=== PATIENT | male | born 1995 | race African-American/Black ===

== ENCOUNTER 2019-07-10 02:23 | Inpatient (IN) | payer MEDICARE, MEDICAID ==
[~2019-07-10] VITALS: Ht 185.4 cm; Wt 85.3 kg
[~2019-07-10 02:23] MED LIST: ACETAMINOPHEN325 M1 ORAL; ASCORBIC ACID500 MG ORAL; BACLOFEN10 MG ORAL; BISACODYL5 MG ORAL; CELEXA20 MG ORAL; COLACE100 MG ORAL; DITROPAN10 MG ORAL; FERROUS SULFAT325 MG ORAL; GABAPENTIN400 MG ORAL; LIDOCAINE700 M1 TP; MULTIVITAMINS1 EAC2 ORAL; POTASSIUM CHLO10 ME2 PO; SORBITOL2000 ML PO; TYLENOL EXTRA500 MG ORAL
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
[2019-07-10] MEDS ORDERED: SENNA8.6 M2 PO (02:33)
[2019-07-10] MEDS ORDERED: MILK OF MA2400 MG/10 ORAL (02:33)
[2019-07-10] MEDS ORDERED: SIMETHICONE80 MG ORAL (02:33)
[2019-07-10] MEDS ORDERED: CYMBALTA30 MG ORAL (02:33)
[2019-07-10] MEDS ORDERED: REVATIO20 MG ORAL (02:33)
[2019-07-10] MEDS ORDERED: NORCO 5-325 TA1 EAC1 ORAL (02:33)
[2019-07-10] MEDS ORDERED: BENEFIBER1 EACH ORAL (02:33)
[2019-07-10] MEDS ORDERED: AMITIZA24 MCG ORAL (02:33)
[2019-07-10] MEDS ORDERED: IBUPROFEN400 MG ORAL (02:33)
[2019-07-10] MEDS ORDERED: MELATONIN3 MG ORAL (02:33)
[2019-07-10] MEDS ORDERED: OMEPRAZOLE20 M2 ORAL (02:33)
--- NOTE | 2019-07-10 02:40 | NUR ---
ED Nurse Note: blood drawn and sent to lab
--- NOTE | 2019-07-10 02:43 | NUR ---
ED Nurse Note: urine collected and sent to lab
--- NOTE | 2019-07-10 02:45 | NUR ---
ED Nurse Note: xr at bedside
[2019-07-10 02:48] VITALS: BP 119/84
[2019-07-10 02:53] LABS: APPEARANCE,URINE SLIGHTLY CLOUDY; BILIRUBIN, URINE NEGATIVE (NEGATIVE); GLUCOSE, URINE (UA) NEGATIVE (NEGATIVE); KETONES,URINE 1+ (NEGATIVE); LEUKOCYTE ESTERASE ,URINE 3+ (NEGATIVE); NITRITE,URINE NEGATIVE (NEGATIVE); PH,URINE 7 (4.5-8.0); PROTEIN,URINE 2+ (NEGATIVE); UROBILINOGEN,URINE 1 MG/DL (0.0-1.0)
[2019-07-10 02:53] LABS: BASOPHILS % (AUTO) 1.6 % (0.0-2.0); EOSINOPHILS % (AUTO) 0.5 % (0.0-3.0); HEMATOCRIT 41.2 % (42.0-52.0); HEMOGLOBIN 13.5 G/DL (14.2-18.0); LYMPHOCYTES % (AUTO) 32.3 % (20.0-45.0); MEAN CORPUSCULAR VOLUME 82 FL (80-99); MONOCYTES % (AUTO) 7.2 % (1.0-10.0); NEUTROPHILS % (AUTO) 58.4 % (45.0-75.0); PLATELET COUNT 382 K/UL (150-450); RED BLOOD COUNT 5.01 M/UL (4.70-6.10); WHITE BLOOD COUNT 8.3 K/UL (4.8-10.8)
[2019-07-10 02:55] LABS: COLOR,URINE YELLOW
[2019-07-10 03:03] LABS: ANION GAP 6 mmol/L (5-15); BLOOD UREA NITROGEN 11 mg/dL (7-18); CALCIUM 9.3 MG/DL (8.5-10.1); CARBON DIOXIDE 32 MMOL/L (21-32); CHLORIDE 102 MMOL/L (98-107); CREATININE 0.6 MG/DL (0.55-1.30); POTASSIUM 4.2 MMOL/L (3.5-5.1); SODIUM 140 MMOL/L (136-145)
[2019-07-10 03:16] LABS: ALANINE AMINOTRANSFERASE 22 U/L (12-78); ALBUMIN 3.9 G/DL (3.4-5.0); ALBUMIN/GLOBULIN RATIO 0.9 (1.0-2.7); ALKALINE PHOSPHATASE 148 U/L (46-116); ASPARTATE AMINO TRANSFERASE 27 U/L (15-37); BILIRUBIN,TOTAL 0.3 MG/DL (0.2-1.0); CKMB 1.3 NG/ML (0.0-3.6); CREATINE KINASE 273 U/L (26-308)
[2019-07-10] MEDS ORDERED: cefTRIAXone 1 GM in NS 55 ML IVPB ONE (03:45)
--- NOTE | 2019-07-10 03:50 | NUR ---
ED Nurse Note: PT IS CALM AND SLEEPING. VSS, NAD.
--- NOTE | 2019-07-10 05:40 | Diagnostic Imaging Report ---
EXAM: XR Chest, 1 View CLINICAL HISTORY: SOB TECHNIQUE: Frontal view of the chest. COMPARISON: CXR 01/03/18 report only. FINDINGS: Lungs: Unremarkable. No consolidation. Pleural space: Unremarkable. No pneumothorax. Heart: Unremarkable. No cardiomegaly. Mediastinum: Unremarkable. Bones/joints: Unremarkable. Soft tissues: Curvilinear density and multiple metallic foreign bodies are seen in the midline, question within the soft tissues. IMPRESSION: Curvilinear density and multiple metallic foreign bodies are seen in the midline.
[2019-07-10 06:25] VITALS: BP 125/79
--- NOTE | 2019-07-10 06:30 | NUR ---
ED Nurse Note: PT CALM AND SLEEPING. NAD, VSS.
--- NOTE | 2019-07-10 07:43 | NUR ---
ED Nurse Note: Report given to Jw PUENTE.
--- NOTE | 2019-07-10 08:00 | NUR ---
ED Nurse Note: Pt transferred to [facility] unit and received by Jw PUENTE. All belongings with patient. Pt alert and orientedx4, pressure ulcer pics uploaded, swabs sent.
[2019-07-10 08:15] VITALS: BP 113/64
--- NOTE | 2019-07-10 08:15 | NUR ---
NURSE NOTES: Patient admitted from ER via [facility], patient resides @ [facility]. Patient is alert and oriented x4. Not in respiratory/cardiac distress. Orientation given about the unit, patient refused skin assessment stating " I want to sleep more, do it later." RN explained the importance of complying care. Per fci paper and ER wound photo show decubitus. Will follow up. Patient allowed V/S only @ this time. V/S stable, no fever, noted with supra pubic cath with leg bag. Rn changed the leg bag to regular bag and patient stated that suprapubic cath was changed 2 weeks ago. No blood or sediment in the urine. RN paged Dr. Moody for admission orders. Call light within reach, bed is in lowest position. Will continue plan of care.
[2019-07-10] MEDS ORDERED: D5NS 1,000 ML IV SCH (09:30)
--- NOTE | 2019-07-10 09:30 | NUR ---
NURSE NOTES: Dr. Moody came in and RN received admission orders, Dr. Moody said to resume halfway meds.Dr. Moody reviewed all the halfway meds.
[2019-07-10] MEDS ORDERED: Fleet's Mineral Oil Enema RECTAL PRN (09:45)
[2019-07-10] MEDS ORDERED: Revatio 20mg tab ORAL PRN (09:45)
[2019-07-10] MEDS ORDERED: Simethicone 80mg tab ORAL PRN (09:45)
--- NOTE | 2019-07-10 10:00 | NUR ---
NURSE NOTES: Patient refused skin assessment stating " I want to sleep more. Don't bother me." RN explained the importance of complying with care. Rn will follow up.
--- NOTE | 2019-07-10 10:40 | NUR ---
NURSE NOTES: RN informed Mary Ann Jimenez and Jennifer for new consult.
--- NOTE | 2019-07-10 11:00 | History and Physical Report ---
DATE OF ADMISSION: 07/10/2019 TIME SEEN: At 9 a.m. CONSULTANTS: 1. Victor Manuel Ordoñez M.D. 2. Chaim Rodriguez M.D. 3. Rock Reese M.D. CHIEF COMPLAINT: UTI, sepsis, hip wound, paraplegia. BRIEF HISTORY: This is a 23-year-old male, who lives in [facility] with above-mentioned diagnoses, admitted to medical floor for further treatment. Currently, calm, sleeping in bed, not answering questions. REVIEW OF SYSTEMS: Unavailable. PAST MEDICAL HISTORY: Include paraplegia, recurrent UTI. PAST SURGICAL HISTORY: Unknown. MEDICATIONS: Include ceftriaxone, IV fluids. ALLERGIES: Piperacillin, tazobactam, and vancomycin. SOCIAL HISTORY: No smoking. No alcohol. No intravenous drug abuse. FAMILY HISTORY: Noncontributory. PHYSICAL EXAMINATION: GENERAL: Calm in bed, sleepy, refusing to answer questions. VITAL SIGNS: Temperature is 97 degrees, pulse 67, respirations 18, blood pressure 113/64. CARDIOVASCULAR: No murmur. LUNGS: Distant and clear. ABDOMEN: Bowel sounds positive. Nontender and nondistended. EXTREMITIES: Show no cyanosis, clubbing, or edema. NEUROLOGIC: The patient is lethargic in bed, refusing to follow directions. LABORATORY AND DIAGNOSTIC DATA: Labs at this time show hemoglobin and hematocrit 13/41, otherwise CBC is normal. BMP shows alkaline phosphatase 148. Troponin 0.00, otherwise BMP is normal. Urinalysis show 3+ leukocyte esterase. ASSESSMENT: 1. UTI. 2. Sepsis. 3. Hip wound. 4. Paraplegia. PLAN: Resume home medications and diet. Wound care, antibiotics per Infectious Disease. PT and dietary evaluation. CBC and BMP in the morning. Pain control. We will continue to follow the patient. Roger Moody D.O. DR: EMANUEL JOB#: [id number] CC:
[2019-07-10] MEDS: D5 1/2NS 1,000 ML IV SCH (11:19)
[2019-07-10 12:00] VITALS: BP 117/72
--- NOTE | 2019-07-10 12:00 | NUR ---
NURSE NOTES: RN offered lunch but patient wants to eat later. Patient is easily arousable. Breathing is even and unlabored. Denies pain or discomfort. Will continue to monitor.
--- NOTE | 2019-07-10 13:00 | NUR ---
NURSE NOTES: Patient seen by and RN was able to do skin assessment and took picture of patient's wound. patient noted with sacral and right ischial tuberosity stage IV pressure sore and left ischial tuberosity healed wound. Proper skin care done and re-position done.V/S stable.
--- NOTE | 2019-07-10 14:17 | Consultation ---
History of Present Illness General Date patient seen: Jul 10, 2019 Reason for Hospitalization: Male Urogenital Problems Present Illness HPI Patient is a 23-year-old male presents after increased body aches and muscle twitching. Was noted to have abnormal labs admitted further care management. On admission identified to have a abnormal sacral decubitus ulcer as well as right ischial ulcer. Surgery called to evaluate and assist with care. Patient seen, patient evaluate, chart reviewed. Prior history of suprapubic catheter placement. Had been sent in from nursing facility. Prior history of paraplegia approximately T4 level. Has indwelling supra denies any change in urine odor.Denies any vomiting. Reports having recent antibiotic use approximately 1 week ago. Reports being at this facility approximately 3 weeks to a month ago Allergies: Coded Allergies: Dust (Verified Allergy, Unknown, skin rash and/or hives, 01/04/18) PIPERACILLIN (Verified Allergy, Unknown, skin rash and/or hives, 01/04/18) TAZOBACTAM (Verified Allergy, Unknown, skin rash and/or hives, 01/04/18) VANCOMYCIN (Verified Allergy, Unknown, skin rash and/or hives, 01/04/18) COVID-19 Screening Contact w/high risk pt: No Recent Travel to affected area: No Experienced COVID-19 symptoms?: No Medication History Scheduled Baclofen* (Baclofen*), 20 MG ORAL QID, (Reported) Bisacodyl* (Dulcolax*), 10 MG ORAL DAILY, (Reported) Docusate Sodium* (Colace*), 100 MG ORAL TWICE A DAY, (Reported) Duloxetine Hcl* (Cymbalta*), 30 MG ORAL DAILY, (Reported) Gabapentin* (Gabapentin*), 400 MG ORAL THREE TIMES A DAY, (Reported) Ibuprofen* (Motrin*), 200 MG ORAL FOUR TIMES A DAY, (Reported) Lidocaine (Lidocaine), 4 % TP DAILY, (Reported) Lubiprostone (Amitiza*), 24 MCG ORAL EVERY 12 HOURS, (Reported) Magnesium Hydroxide* (Milk Of Magnesia*), 30 ML ORAL DAILY, (Reported) Multivitamins* (Multivitamins*), 1 TAB ORAL DAILY, (Reported) Omeprazole (Omeprazole), 20 MG ORAL DAILY, (Reported) Oxybutynin Chloride (Oxybutynin Chloride), 5 MG ORAL BID, (Reported) Sildenafil Citrate (Revatio), 20 MG ORAL THREE TIMES A DAY, (Reported) Scheduled PRN Acetaminophen* (Acetaminophen 325MG Tablet*), 325 MG ORAL Q4H PRN for For Pain, (Reported) Hydrocodone Bit/Acetaminophen 5-325* ([place] 5-325 Tablet*), 1 TAB ORAL Q6H PRN for FOR PAIN, (Reported) Melatonin (Melatonin), 3 MG ORAL BEDTIME PRN for Insomnia, (Reported) Simethicone* (Simethicone*), 80 MG ORAL Q8H PRN for GAS PAIN, (Reported) Miscellaneous Medications Guar Gum (Benefiber*), 1 PACKET ORAL, (Reported) Potassium Chloride (Potassium Chloride), 10 MEQ PO, (Reported) Sennosides (Senna), 8.6 MG PO, (Reported) Discontinued Medications Acetaminophen* (Tylenol Extra Strength*), 500 MG ORAL Q6H PRN for Mild Pain/ Temp > 100.5, (Reported) Discontinued Reason: Pt stopped taking med Ascorbic Acid* (Ascorbic Acid*), 500 MG ORAL DAILY, (Reported) Discontinued Reason: Pt stopped taking med Citalopram Hydrobromide* (Celexa*), 10 MG ORAL DAILY, (Reported) Discontinued Reason: Pt stopped taking med Ferrous Sulfate* (Ferrous Sulfate*), 325 MG ORAL TWICE A DAY, (Reported) Discontinued Reason: Pt stopped taking med Sorbitol Solution (Sorbitol), 30 ML PO Q6HR, (Reported) Discontinued Reason: Pt stopped taking med Patient History History Provided By: Patient, Medical Record, PMD Healthcare decision maker Resuscitation status Full Code Advanced Directive on File No Past Medical/Surgical History Past Medical/Surgical History: (1) Sacral decubitus ulcer, stage IV (2) UTI (urinary tract infection) (3) Abnormal urogenital findings Review of Systems Review of Symptoms General ROS: no weight loss or fever Psychological ROS: no depression or mood changes, no memory loss Ophthalmic ROS: no visual changes or eye irritation ENT ROS: no nasal congestion, hearing loss, dizziness Allergy and Immunology ROS: no allergic symptoms or urticaria Hematological and Lymphatic ROS: no swollen glands, unusual bleeding or bruising Endocrine ROS: no polyuria, polydipsia, weight changes, temperature intolerance Respiratory ROS: no cough, shortness of breath, or wheezing Cardiovascular ROS: no chest pain or dyspnea on exertion Gastrointestinal ROS: denies abdominal pain, bright red blood in stool. Musculoskeletal ROS: no myalgias or arthralgias Neurological ROS: no TIA or stroke symptoms Dermatological ROS: no new or changing skin lesions, rashes or pruritis Physical Exam Physical Exam General appearance: alert, cooperative, no distress, appears stated age Head: Normocephalic, without obvious abnormality, atraumatic Eyes: conjunctivae/corneas clear. PERRL, EOM's intact. Fundi benign Throat: Lips, mucosa, and tongue normal. Teeth and gums normal Neck: supple, symmetrical, trachea midline, no adenopathy, thyroid: not enlarged, symmetric, no tenderness/mass/nodules, no carotid bruit and no JVD Lungs: clear to auscultation bilaterally Heart: regular rate and rhythm, S1, S2 normal, no murmur, click, rub or gallop Abdomen: soft, non-tender. Bowel sounds normal. No masses, no organomegaly Extremities: extremities normal, atraumatic, no cyanosis or edema Pulses: 2+ and symmetric Skin: Skin see below Neurologic: Grossly normal Last 24 Hour Vital Signs Date Time Temp Pulse Resp B/P (MAP) Pulse Ox O2 Delivery O2 Flow Rate FiO2 07/10/19 12:00 97.6 74 18 117/72 (87) 99 07/10/19 09:00 Room Air 07/10/19 08:29 Room Air 07/10/19 08:15 97.2 67 18 113/64 (80) 99 07/10/19 08:00 98.4 79 18 100/65 99 Room Air 07/10/19 06:25 98.4 69 18 125/79 98 Room Air 07/10/19 02:48 98.1 78 18 119/84 98 Room Air 07/10/19 02:25 97.9 71 18 107/71 (83) 100 Room Air Intake and Output 07/09/19 07/10/19 19:00 07:00 Intake Total 0 ml Output Total 50 ml Balance -50 ml Intake Oral 0 ml Output Urine Total 50 ml Laboratory Tests Test 07/10/19 02:38 07/10/19 02:40 White Blood Count 8.3 K/UL (4.8-10.8) Red Blood Count 5.01 M/UL (4.70-6.10) Hemoglobin 13.5 G/DL (14.2-18.0) L Hematocrit 41.2 % (42.0-52.0) L Mean Corpuscular Volume 82 FL (80-99) Mean Corpuscular Hemoglobin 26.9 PG (27.0-31.0) L Mean Corpuscular Hemoglobin Concent 32.7 G/DL (32.0-36.0) Red Cell Distribution Width 13.0 % (11.6-14.8) Platelet Count 382 K/UL (150-450) Mean Platelet Volume 6.3 FL (6.5-10.1) L Neutrophils (%) (Auto) 58.4 % (45.0-75.0) Lymphocytes (%) (Auto) 32.3 % (20.0-45.0) Monocytes (%) (Auto) 7.2 % (1.0-10.0) Eosinophils (%) (Auto) 0.5 % (0.0-3.0) Basophils (%) (Auto) 1.6 % (0.0-2.0) Sodium Level 140 MMOL/L (136-145) Potassium Level 4.2 MMOL/L (3.5-5.1) Chloride Level 102 MMOL/L (98-107) Carbon Dioxide Level 32 MMOL/L (21-32) Anion Gap 6 mmol/L (5-15) Blood Urea Nitrogen 11 mg/dL (7-18) Creatinine 0.6 MG/DL (0.55-1.30) Estimat Glomerular Filtration Rate > 60 mL/min (>60) Glucose Level 94 MG/DL (74-106) Lactic Acid Level 1.60 mmol/L (0.4-2.0) Calcium Level 9.3 MG/DL (8.5-10.1) Total Bilirubin 0.3 MG/DL (0.2-1.0) Aspartate Amino Transf (AST/SGOT) 27 U/L (15-37) Alanine Aminotransferase (ALT/SGPT) 22 U/L (12-78) Alkaline Phosphatase 148 U/L (46-116) H Total Creatine Kinase 273 U/L (26-308) Creatine Kinase MB 1.3 NG/ML (0.0-3.6) Creatine Kinase MB Relative Index 0.4 Troponin I 0.000 ng/mL (0.000-0.056) Total Protein 8.4 G/DL (6.4-8.2) H Albumin 3.9 G/DL (3.4-5.0) Globulin 4.5 g/dL Albumin/Globulin Ratio 0.9 (1.0-2.7) L Urine Color Yellow Urine Appearance Slightly cloudy Urine pH 7 (4.5-8.0) Urine Specific [place] 1.010 (1.005-1.035) Urine Protein 2+ (NEGATIVE) H Urine Glucose (UA) Negative (NEGATIVE) Urine Ketones 1+ (NEGATIVE) H Urine Blood 3+ (NEGATIVE) H Urine Nitrite Negative (NEGATIVE) Urine Bilirubin Negative (NEGATIVE) Urine Urobilinogen 1 MG/DL (0.0-1.0) H Urine Leukocyte Esterase 3+ (NEGATIVE) H Urine RBC 15-20 /HPF (0 - 0) H Urine WBC 20-30 /HPF (0 - 0) H Urine Squamous Epithelial Cells Occasional /LPF Urine Amorphous Sediment Few /LPF (NONE) H Urine Bacteria Few /HPF (NONE) Urine Mucus Moderate /LPF (NONE/OCC) H Microbiology Date/Time Source Procedure Growth Status 07/10/19 02:30 Nasal Nares - Final Complete 07/10/19 02:30 Nasal Nares - Final Complete Height (Feet): 6 Height (Inches): 1.00 Weight (Pounds): 175 Medications Current Medications Medications (Trade) Dose Ordered Sig/Kai Route PRN Reason Start Time Stop Time Status Last Admin Dose Admin Acetaminophen (Tylenol) 325 mg Q4H PRN ORAL For Pain 07/10/19 09:45 08/09/19 09:44 Acetaminophen/ Hydrocodone Bitart ([place] 5/325) 1 tab Q6H PRN ORAL Severe Pain (Pain Scale 7-10) 07/10/19 09:45 07/17/19 09:44 Baclofen (Lioresal) 20 mg THREE TIMES A DAY ORAL 07/10/19 13:00 08/09/19 12:59 Bisacodyl (Dulcolax) 10 mg DAILYPRN PRN RECTAL Constipation 07/10/19 09:45 10/08/19 09:44 Dextrose/Sodium Chloride 1,000 ml @ 60 mls/hr [id number] IV 07/10/19 09:45 08/09/19 09:44 07/10/19 11:19 Docusate Sodium (Colace) 250 mg DAILY ORAL 07/11/19 09:00 08/10/19 08:59 Duloxetine HCl (Cymbalta) 30 mg BID ORAL 07/10/19 18:00 10/08/19 17:59 Gabapentin (Neurontin) 400 mg THREE TIMES A DAY ORAL 07/10/19 13:00 08/09/19 12:59 Heparin Sodium (Porcine) (Heparin 5000 units/ml) 5,000 units EVERY 12 HOURS SUBQ 07/10/19 21:00 08/24/19 20:59 Ibuprofen (Motrin) 600 mg Q6H PRN ORAL Moderate Pain (Pain Scale 4-6) 07/10/19 09:45 08/09/19 09:44 Lidocaine (Lidoderm 5% PATCH) 1 patch DAILY TDERMAL 07/11/19 09:00 10/09/19 08:59 Lubiprostone (Amitiza) 24 mcg EVERY 12 HOURS ORAL 07/10/19 21:00 10/08/19 20:59 Magnesium Hydroxide (Mom) 30 ml QHS ORAL 07/10/19 21:00 08/09/19 20:59 Mineral Oil (Fleet's Mineral Oil Enema) 133 ml DAILYPRN PRN RECTAL Constipation 07/10/19 09:45 08/09/19 09:44 Multivitamins Therapeutic (Therapeutic Multivitamin) 1 ea DAILY ORAL 07/11/19 09:00 08/10/19 08:59 Polyethylene Glycol (Miralax) 17 gm DAILY ORAL 07/11/19 09:00 08/10/19 08:59 Potassium Chloride (K-Dur) 10 meq DAILY ORAL 07/11/19 09:00 10/09/19 08:59 Sennosides (Senokot) 17.2 mg QHS ORAL 07/10/19 21:00 08/09/19 20:59 Simethicone (Mylicon) 80 mg TID PRN ORAL FLATULENCE/BLOATING 07/10/19 09:45 10/08/19 09:44 Assessment/Plan Problem List: (1) Abnormal urogenital findings Assessment & Plan: Suprapubic catheter patient states was placed at [place]. Functional without complication Continue to drainage bag ICD Codes: R89.9 - Unspecified abnormal finding in specimens from other organs , systems and tissues SNOMED: 160462986, [id number] (2) UTI (urinary tract infection) Assessment & Plan: Antibiotics per infectious disease Trend labs Thank you ICD Codes: N39.0 - Urinary tract infection, site not specified SNOMED: 87252465 (3) Sacral decubitus ulcer, stage IV Assessment & Plan: 23-year-old male presents to [facility] and is admitted for further care and management identified to have decubitus ulcer on admission. States she had with a stage IV sacral decubitus ulcer that does show some signs of resolving and likely present for some time now. The patient' s sacrum and buttock area is near flat and identified to have a divot in the sacral region with scar tissue identified and a 3 cm x 3 cm open area 1 cm deep down to palpable sacrum. It is an abnormal wound which can be potentially consistent with potential debridement prior and closure and considerations for either bone debridement. Wound bed in total approximately 8 cm x 8 cm with scar tissue and healing open area as above. No active drainage. No signs of active acute infection. Patient also identified on admission to have a right ischial decubitus ulcer with palpable bone as well. There is overlying tissue granulation tissue identified and scar tissue showing signs of resolution and likely prior was larger and has received care since. No acute infection no drainage both wounds are clean without signs of active infection. No foul odor. Treatment plan Wash sacral and right ischial wounds daily with normal saline. Apply Thera honey impregnated gauze followed by foam dressing. Skin protectant Turn patient every 2 hours Offload heels with pillow Air mattress Nutritional optimization We will follow with recommendations thank you for let me participate in patient' s care ICD Codes: L89.154 - Pressure ulcer of sacral region, stage 4 SNOMED: 601567756, [id number] Chrisf[place]Rock Jul 10, 2019 14:17
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
[2019-07-10] MEDS ORDERED: D5 1/2NS 1000ml IV ONE (17:50)
[2019-07-10] MEDS ORDERED: Tubing IV Secondary IV ONE (17:50)
[2019-07-10] MEDS: DULoxetine 30mg cap ORAL SCH (18:00)
--- NOTE | 2019-07-10 18:35 | NUR ---
NURSE NOTES: RN offered neurontin,duloxetin and baclofen but patient did not want to take meds now stating "I want to take them @7:30,I took meds earlier around 3pm , it is too early to take meds." RN explained about meds and re-educated. Will endorse to the next shift.
--- NOTE | 2019-07-10 19:15 | NUR ---
HAND-OFF: Report given to Kathie and endorsed plan of care and also endorsed to administer meds per patient request.
[2019-07-10 19:46] VITALS: BP 135/75
--- NOTE | 2019-07-10 20:02 | NUR ---
NURSE NOTES: Received patient awake, alert, verbal, paraplegic, no complaints.
[2019-07-10] MEDS: Heparin 5000 units/ml inj SUBQ SCH (21:00)
[2019-07-10] MEDS: Amitiza 24mcg cap ORAL SCH (21:31)
[2019-07-10] MEDS: Sennosides 8.6mg tab ORAL SCH (21:31)
[2019-07-10] MEDS: Milk of Magnesia 30ml Ud ORAL SCH (21:31)
[2019-07-10 23:38] VITALS: BP 130/80
[2019-07-11] MEDS: D5 1/2NS 1,000 ML IV SCH ×2 (02:25→14:31)
[2019-07-11 04:06] VITALS: BP 129/75
--- NOTE | 2019-07-11 07:17 | NUR ---
HAND-OFF: Report given to Jw Mehta RN.
--- NOTE | 2019-07-11 07:18 | NUR ---
NURSE NOTES: Received patient in bed,asleep @ this time. Breathing is even and unlabored. Bed is in lowest position and call light and personnel items within reach. Will continue plan of care.
--- NOTE | 2019-07-11 08:00 | NUR ---
NURSE NOTES: patient refused 8:00am v/S. Explained the risks and benefits.
--- NOTE | 2019-07-11 08:11 | NUR ---
NURSE NOTES: Patient is not taking any antibiotics. RN followed up with Dr. Stevens for antibiotics. Dr. Stevens says she wants to wait for the urine culture since patient has no fever and his WBC is normal.
--- NOTE | 2019-07-11 08:12 | General Progress Note ---
Assessment/Plan Problem List: (1) Sepsis ICD Codes: A41.9 - Sepsis, unspecified organism SNOMED: 85840859 (2) Paraplegia ICD Codes: G82.20 - Paraplegia, unspecified SNOMED: 02681048 (3) UTI (urinary tract infection) ICD Codes: N39.0 - Urinary tract infection, site not specified SNOMED: 93571207 (4) Sacral decubitus ulcer, stage IV ICD Codes: L89.154 - Pressure ulcer of sacral region, stage 4 SNOMED: 898070779, 466848683 Status: unchanged Assessment/Plan: pt diet wound care abx beltran control cbc bmp am Subjective Constitutional: Reports: weakness Allergies: Coded Allergies: Dust (Verified Allergy, Unknown, skin rash and/or hives, 01/04/18) PIPERACILLIN (Verified Allergy, Unknown, skin rash and/or hives, 01/04/18) TAZOBACTAM (Verified Allergy, Unknown, skin rash and/or hives, 01/04/18) VANCOMYCIN (Verified Allergy, Unknown, skin rash and/or hives, 01/04/18) All Systems: reviewed and negative except above Subjective sleepy calm Objective Last 24 Hour Vital Signs Date Time Temp Pulse Resp B/P (MAP) Pulse Ox O2 Delivery O2 Flow Rate FiO2 07/11/19 04:06 98.3 90 18 129/75 (93) 99 07/10/19 23:38 97.9 73 18 130/80 (97) 99 07/10/19 20:15 Room Air 07/10/19 19:46 97.9 76 18 135/75 (95) 98 07/10/19 12:00 97.6 74 18 117/72 (87) 99 07/10/19 09:00 Room Air 07/10/19 08:29 Room Air 07/10/19 08:15 97.2 67 18 113/64 (80) 99 Intake and Output 07/10/19 07/11/19 19:00 07:00 Intake Total 300 ml 180 ml Output Total 450 ml 400 ml Balance -150 ml -220 ml IV Total 300 ml 180 ml Output Urine Total 450 ml 400 ml # Voids 2 # Bowel Movements 1 Height (Feet): 6 Height (Inches): 1.00 Weight (Pounds): 175 General Appearance: lethargic EENT: normal ENT inspection Neck: normal alignment Cardiovascular: normal peripheral pulses, normal rate, regular rhythm Respiratory/Chest: chest wall non-tender, lungs clear, normal breath sounds Abdomen: normal bowel sounds, non tender, soft Extremities: normal inspection Edema: no edema noted Arm (L), no edema noted Arm (R), no edema noted Leg (L), no edema noted Leg (R), no edema noted Pedal (L), no edema noted Pedal (R), no edema noted Generalized Neurologic: motor weakness Skin: normal pigmentation, warm/dry Roger Moody DO Jul 11, 2019 08:11
[2019-07-11] MEDS: Heparin 5000 units/ml inj SUBQ SCH ×2 (09:00→20:49)
[2019-07-11] MEDS: Miralax 17gm pkt ORAL SCH (09:00)
--- NOTE | 2019-07-11 09:00 | NUR ---
NURSE NOTES: RN offered 9:00 am medications but he wants to take them later. He will call the nurse when he wants to. Addendum: 07/11/19 at 1549 by NO FRANK RN Rn also offered morning care but patient said "come back later."
[2019-07-11 10:12] LABS: ANION GAP 9 mmol/L (5-15); BLOOD UREA NITROGEN 9 mg/dL (7-18); CALCIUM 9.1 MG/DL (8.5-10.1); CARBON DIOXIDE 29 MMOL/L (21-32); CHLORIDE 106 MMOL/L (98-107); CREATININE 0.7 MG/DL (0.55-1.30); POTASSIUM 3.6 MMOL/L (3.5-5.1); SODIUM 144 MMOL/L (136-145)
[2019-07-11 10:34] LABS: BASOPHILS % (AUTO) 1.2 % (0.0-2.0); EOSINOPHILS % (AUTO) 1.6 % (0.0-3.0); HEMATOCRIT 36.6 % (42.0-52.0); HEMOGLOBIN 12.4 G/DL (14.2-18.0); LYMPHOCYTES % (AUTO) 50.6 % (20.0-45.0); MEAN CORPUSCULAR VOLUME 82 FL (80-99); NEUTROPHILS % (AUTO) 39.6 % (45.0-75.0); PLATELET COUNT 331 K/UL (150-450); RED BLOOD COUNT 4.48 M/UL (4.70-6.10); RED CELL DISTRIBUTION WIDTH 12.8 % (11.6-14.8); WHITE BLOOD COUNT 5.7 K/UL (4.8-10.8)
[2019-07-11] MEDS: DULoxetine 30mg cap ORAL SCH ×2 (10:39→17:48)
[2019-07-11] MEDS: Multivitamin w/Minerals tab ORAL SCH (10:39)
[2019-07-11] MEDS: Docusate 250mg cap ORAL SCH (10:39)
[2019-07-11] MEDS: Amitiza 24mcg cap ORAL SCH ×2 (10:39→20:48)
[2019-07-11] MEDS: HYDROcodone/Acetamin 5/325 tab ORAL PRN ×2 (10:40→17:45)
--- NOTE | 2019-07-11 10:45 | NUR ---
NURSE NOTES: Patient refused IVF and some of his meds including miralax, heparin, lidocaine patch and potassium. Rn re-educated on medications ,patient fully understood about meds but patient refused x3. Rn explained the risks and benefits. Addendum: 07/11/19 at 1246 by NO FRANK RN Dr. Moody is aware with no new order.
--- NOTE | 2019-07-11 11:00 | NUR ---
PT Note Attempted to see patient for PT eval but patient refused. C/o feeling sleepy.
[2019-07-11 12:00] VITALS: BP 134/80
--- NOTE | 2019-07-11 12:48 | NUR ---
NURSE NOTES: Patient took norco 5/325mg 1 tab 2 hours ago for generalized body pain but he called nurse and said " [place] doesn't do anything. I need stronger pain medication and antibiotics." RN explained what Dr. Stevens said earlier that she wants to wait for urine cx before starting antibiotics. And followed up with Dr. Moody for pain med with new order for physician consult with Dr. Hernandez and RN contacted Florian LOBO, he said he would check the patient tomorrow and no stronger pain med @ this time. RN also followed up with Dr. Stevens for antibiotics and received order from Dr. Stevens to stat ceftrizxone 1g IVPB Q24hr.Dr. Stevens is aware that patient is allergic to piperacillin and tazobactam and vancomycin. She said ok to give ceftriaxone since he got 1 dose in ER. Patient had no reaction.
--- NOTE | 2019-07-11 14:00 | NUR ---
NURSE NOTES: RN offered gabapentin and baclofen but patient refused to take them, re-educated on medication.
[2019-07-11] MEDS: cefTRIAXone 1 GM in D5W 55 ML IVPB SCH (14:28)
--- NOTE | 2019-07-11 14:40 | NUR ---
NURSE NOTES: proper wound care and skin care done, whole linen has changed. Rn spoke to wound care nurse on the phone and air mattress was ordered by wound care nurse. Awaiting for delivery. Patient completed ceftriaxone without adverse reaction. RN informed patient possible adverse reaction prior to hanging the IV antibiotic. IVF is running @ this time.
[2019-07-11 16:00] VITALS: BP 144/75
--- NOTE | 2019-07-11 17:14 | Surgery Progress Note ---
Surgery Progress Note Subjective Additional Comments no acute events resting does not want to be bothered air mattress ordered Objective Last 24 Hour Vital Signs Date Time Temp Pulse Resp B/P (MAP) Pulse Ox O2 Delivery O2 Flow Rate FiO2 07/11/19 16:00 97.7 63 19 144/75 (98) 98 07/11/19 12:00 98.0 67 19 134/80 (98) 99 07/11/19 09:00 Room Air 07/11/19 04:06 98.3 90 18 129/75 (93) 99 07/10/19 23:38 97.9 73 18 130/80 (97) 99 07/10/19 20:15 Room Air 07/10/19 19:46 97.9 76 18 135/75 (95) 98 I&O Intake and Output 07/10/19 07/11/19 19:00 07:00 Intake Total 300 ml 180 ml Output Total 450 ml 400 ml Balance -150 ml -220 ml IV Total 300 ml 180 ml Output Urine Total 450 ml 400 ml # Voids 2 # Bowel Movements 1 Dressing: dry Wound: clean Cardiovascular: RSR Respiratory: clear Abdomen: soft, non-tender, present bowel sounds Extremities: no edema, no tenderness, no cyanosis Laboratory Tests Test 07/11/19 09:45 White Blood Count 5.7 K/UL (4.8-10.8) Red Blood Count 4.48 M/UL (4.70-6.10) L Hemoglobin 12.4 G/DL (14.2-18.0) L Hematocrit 36.6 % (42.0-52.0) L Mean Corpuscular Volume 82 FL (80-99) Mean Corpuscular Hemoglobin 27.8 PG (27.0-31.0) Mean Corpuscular Hemoglobin Concent 33.9 G/DL (32.0-36.0) Red Cell Distribution Width 12.8 % (11.6-14.8) Platelet Count 331 K/UL (150-450) Mean Platelet Volume 6.3 FL (6.5-10.1) L Neutrophils (%) (Auto) 39.6 % (45.0-75.0) L Lymphocytes (%) (Auto) 50.6 % (20.0-45.0) H Monocytes (%) (Auto) 7.0 % (1.0-10.0) Eosinophils (%) (Auto) 1.6 % (0.0-3.0) Basophils (%) (Auto) 1.2 % (0.0-2.0) Sodium Level 144 MMOL/L (136-145) Potassium Level 3.6 MMOL/L (3.5-5.1) Chloride Level 106 MMOL/L (98-107) Carbon Dioxide Level 29 MMOL/L (21-32) Anion Gap 9 mmol/L (5-15) Blood Urea Nitrogen 9 mg/dL (7-18) Creatinine 0.7 MG/DL (0.55-1.30) Estimat Glomerular Filtration Rate > 60 mL/min (>60) Glucose Level 82 MG/DL (74-106) Calcium Level 9.1 MG/DL (8.5-10.1) Plan Problems: (1) Abnormal urogenital findings Assessment & Plan: Suprapubic catheter patient states was placed at [place]. Functional without complication Continue to drainage bag (2) UTI (urinary tract infection) Assessment & Plan: Antibiotics per infectious disease Trend labs Thank you (3) Sacral decubitus ulcer, stage IV Assessment & Plan: 23-year-old male presents to [facility] and is admitted for further care and management identified to have decubitus ulcer on admission. States she had with a stage IV sacral decubitus ulcer that does show some signs of resolving and likely present for some time now. The patient' s sacrum and buttock area is near flat and identified to have a divot in the sacral region with scar tissue identified and a 3 cm x 3 cm open area 1 cm deep down to palpable sacrum. It is an abnormal wound which can be potentially consistent with potential debridement prior and closure and considerations for either bone debridement. Wound bed in total approximately 8 cm x 8 cm with scar tissue and healing open area as above. No active drainage. No signs of active acute infection. Patient also identified on admission to have a right ischial decubitus ulcer with palpable bone as well. There is overlying tissue granulation tissue identified and scar tissue showing signs of resolution and likely prior was larger and has received care since. No acute infection no drainage both wounds are clean without signs of active infection. No foul odor. Treatment plan Wash sacral and right ischial wounds daily with normal saline. Apply Thera honey impregnated gauze followed by foam dressing. Skin protectant Turn patient every 2 hours Offload heels with pillow Air mattress Nutritional optimization We will follow with recommendations thank you for let me participate in patient' s care Rock Reese Jul 11, 2019 17:14
--- NOTE | 2019-07-11 17:50 | NUR ---
NURSE NOTES: RN offered gabapentin,baclofen and duloxetine but patient refused x3 but wanted to take norco. RN explained the risks and benefits.
--- NOTE | 2019-07-11 19:09 | NUR ---
HAND-OFF: Report given to Beti and endorsed plan of care.
[2019-07-11 20:09] VITALS: BP 131/81
--- NOTE | 2019-07-11 20:12 | NUR ---
NURSE NOTES: Received patient awake, alert, verbal, paraplegic, resting in bed, comfortable.
[2019-07-11] MEDS: Sennosides 8.6mg tab ORAL SCH (20:49)
[2019-07-11] MEDS: Milk of Magnesia 30ml Ud ORAL SCH (20:49)
[2019-07-11 23:41] VITALS: BP 128/74
--- NOTE | 2019-07-12 03:15 | NUR ---
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
--- NOTE | 2019-07-12 03:24 | NUR ---
NURSE NOTES: Left messages to Tiago Mojica, and Hilda regarding patient positive for VRE Rectum. Awaiting any further orders.
[2019-07-12 04:36] VITALS: BP 130/84
[2019-07-12 06:39] LABS: HEMATOCRIT 37.5 % (42.0-52.0); HEMOGLOBIN 12.3 G/DL (14.2-18.0); MEAN CORPUSCULAR VOLUME 83 FL (80-99); PLATELET COUNT 325 K/UL (150-450); RED BLOOD COUNT 4.53 M/UL (4.70-6.10); RED CELL DISTRIBUTION WIDTH 12.7 % (11.6-14.8); WHITE BLOOD COUNT 6.6 K/UL (4.8-10.8)
[2019-07-12 06:44] LABS: ANION GAP 7 mmol/L (5-15); BLOOD UREA NITROGEN 11 mg/dL (7-18); CALCIUM 9.2 MG/DL (8.5-10.1); CARBON DIOXIDE 31 MMOL/L (21-32); CHLORIDE 103 MMOL/L (98-107); CREATININE 0.6 MG/DL (0.55-1.30); POTASSIUM 3.5 MMOL/L (3.5-5.1); SODIUM 141 MMOL/L (136-145)
--- NOTE | 2019-07-12 07:20 | NUR ---
NURSE NOTES:handoff received from KWAME Vázquez. Patient received sleeping in bed, no acute signs of distress noted. IV site is clean dry and intact, fluids not running, patient refused. 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 Patient has suprapubic cath. Bed in the low and locked position with call light within reach, will continue to monitor patient.
--- NOTE | 2019-07-12 07:23 | NUR ---
HAND-OFF: Report given to Sung Hendricks RN.
[2019-07-12 08:00] VITALS: BP 133/80
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
--- NOTE | 2019-07-12 09:11 | General Progress Note ---
Assessment/Plan Problem List: (1) Sepsis ICD Codes: A41.9 - Sepsis, unspecified organism SNOMED: 88732627 (2) Paraplegia ICD Codes: G82.20 - Paraplegia, unspecified SNOMED: 70133247 (3) UTI (urinary tract infection) ICD Codes: N39.0 - Urinary tract infection, site not specified SNOMED: 06951283 (4) Sacral decubitus ulcer, stage IV ICD Codes: L89.154 - Pressure ulcer of sacral region, stage 4 SNOMED: 563870801, [id number] Status: stable, progressing Assessment/Plan: pt diet wound care abx pain control cbc bmp am dc plan Subjective Constitutional: Reports: weakness Allergies: Coded Allergies: Dust (Verified Allergy, Unknown, skin rash and/or hives, 01/04/18) PIPERACILLIN (Verified Allergy, Unknown, skin rash and/or hives, 01/04/18) TAZOBACTAM (Verified Allergy, Unknown, skin rash and/or hives, 01/04/18) VANCOMYCIN (Verified Allergy, Unknown, skin rash and/or hives, 01/04/18) All Systems: reviewed and negative except above Subjective sleepy calm Objective Last 24 Hour Vital Signs Date Time Temp Pulse Resp B/P (MAP) Pulse Ox O2 Delivery O2 Flow Rate FiO2 07/12/19 08:00 97.5 78 18 133/80 (97) 99 07/12/19 04:36 97.8 76 18 130/84 (99) 98 07/11/19 23:41 97.6 70 18 128/74 (92) 96 07/11/19 20:18 Room Air 07/11/19 20:09 97.8 71 18 131/81 (98) 97 07/11/19 16:00 97.7 63 19 144/75 (98) 98 07/11/19 12:00 98.0 67 19 134/80 (98) 99 Intake and Output 07/11/19 07/12/19 19:00 07:00 Intake Total 1040 ml 180 ml Output Total 700 ml 650 ml Balance 340 ml -470 ml IV Total 240 ml 180 ml Other 800 ml Output Urine Total 700 ml 650 ml # Voids 2 Laboratory Tests 07/11/19 09:45: White Blood Count 5.7, Red Blood Count 4.48L, Hemoglobin 12.4L, Hematocrit 36.6L , Mean Corpuscular Volume 82, Mean Corpuscular Hemoglobin 27.8, Mean Corpuscular Hemoglobin Concent 33.9, Red Cell Distribution Width 12.8, Platelet Count 331, Mean Platelet Volume 6.3L, Neutrophils (%) (Auto) 39.6L, Lymphocytes (%) (Auto) 50.6H, Monocytes (%) (Auto) 7.0, Eosinophils (%) (Auto) 1.6, Basophils (%) (Auto) 1.2, Sodium Level 144, Potassium Level 3.6, Chloride Level 106, Carbon Dioxide Level 29, Anion Gap 9, Blood Urea Nitrogen 9, Creatinine 0.7 , Estimat Glomerular Filtration Rate > 60, Glucose Level 82, Calcium Level 9.1 07/12/19 05:30: White Blood Count 6.6, Red Blood Count 4.53L, Hemoglobin 12.3L, Hematocrit 37.5L , Mean Corpuscular Volume 83, Mean Corpuscular Hemoglobin 27.2, Mean Corpuscular Hemoglobin Concent 32.9, Red Cell Distribution Width 12.7, Platelet Count 325, Mean Platelet Volume 6.1L, Neutrophils (%) (Auto) , Lymphocytes (%) ( Auto) , Monocytes (%) (Auto) , Eosinophils (%) (Auto) , Basophils (%) (Auto) , Sodium Level 141, Potassium Level 3.5, Chloride Level 103, Carbon Dioxide Level 31, Anion Gap 7, Blood Urea Nitrogen 11, Creatinine 0.6, Estimat Glomerular Filtration Rate > 60, Glucose Level 78, Calcium Level 9.2, Neutrophils % (Manual ) [Pending], Lymphocytes % (Manual) [Pending], Platelet Estimate [Pending], Platelet Morphology [Pending] Height (Feet): 6 Height (Inches): 1.00 Weight (Pounds): 175 General Appearance: lethargic EENT: normal ENT inspection Neck: normal alignment Cardiovascular: normal peripheral pulses, normal rate, regular rhythm Respiratory/Chest: chest wall non-tender, lungs clear, normal breath sounds Abdomen: normal bowel sounds, non tender, soft Extremities: normal inspection Edema: no edema noted Arm (L), no edema noted Arm (R), no edema noted Leg (L), no edema noted Leg (R), no edema noted Pedal (L), no edema noted Pedal (R), no edema noted Generalized Neurologic: motor weakness Skin: normal pigmentation, warm/dry Roger Moody DO Jul 12, 2019 09:11
[2019-07-12] MEDS: DULoxetine 30mg cap ORAL SCH ×2 (10:06→18:58)
[2019-07-12] MEDS: Docusate 250mg cap ORAL SCH (10:06)
[2019-07-12] MEDS: Amitiza 24mcg cap ORAL SCH ×2 (10:06→20:38)
[2019-07-12] MEDS: Miralax 17gm pkt ORAL SCH (10:06)
[2019-07-12] MEDS: Multivitamin w/Minerals tab ORAL SCH (10:06)
[2019-07-12] MEDS: cefTRIAXone 1 GM in D5W 55 ML IVPB SCH (10:07)
[2019-07-12] MEDS: Heparin 5000 units/ml inj SUBQ SCH ×2 (10:09→10:25)
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
[2019-07-12] MEDS ORDERED: HYDROcodone/Acetamin 5/325 tab ORAL PRN (10:24)
--- NOTE | 2019-07-12 10:25 | NUR ---
DISCHARGE PLANNING PATIENT HAS BEEN REFERRED BACK TO [facility] P: [phone] F: [phone]
[2019-07-12] MEDS: HYDROcodone/Acetamin 10/325 tab ORAL PRN (10:53)
[2019-07-12] MEDS: D5 1/2NS 1,000 ML IV SCH (11:45)
--- NOTE | 2019-07-12 11:49 | NUR ---
P.T Note: P.T evaluation completed. Based on P.T evaluation, Pt is already at baseline function at bed and w/c level therefore not a candidate for skilled P.T services. Educated pt on proper wt shifting/bed positioning to prevent further occurrence of pressure sore. Pt verbalized understanding and able to return demonstration independently. Recommend to DC to prior living arrangement. DC P.T services. Thank you for this referral.
[2019-07-12 12:00] VITALS: BP 119/72
--- NOTE | 2019-07-12 13:21 | NUR ---
NURSE NOTES:WOUND CARE NOTES:Pt declined for wounds to be assessed by wound nurse. Pt also declined surface support mattress.
--- NOTE | 2019-07-12 14:27 | Surgery Progress Note ---
Surgery Progress Note Subjective Additional Comments no acute events refusing care refusing most interventions air mattress ordered but refusing labs noted Objective Last 24 Hour Vital Signs Date Time Temp Pulse Resp B/P (MAP) Pulse Ox O2 Delivery O2 Flow Rate FiO2 07/12/19 12:00 97.7 63 19 119/72 (88) 99 07/12/19 09:00 Room Air 07/12/19 08:00 97.5 78 18 133/80 (97) 99 07/12/19 04:36 97.8 76 18 130/84 (99) 98 07/11/19 23:41 97.6 70 18 128/74 (92) 96 07/11/19 20:18 Room Air 07/11/19 20:09 97.8 71 18 131/81 (98) 97 07/11/19 16:00 97.7 63 19 144/75 (98) 98 I&O Intake and Output 07/11/19 07/12/19 19:00 07:00 Intake Total 1040 ml 180 ml Output Total 700 ml 650 ml Balance 340 ml -470 ml IV Total 240 ml 180 ml Other 800 ml Output Urine Total 700 ml 650 ml # Voids 2 Dressing: other Wound: other Drains: other Cardiovascular: other Respiratory: other Abdomen: other Extremities: other Laboratory Tests Test 07/12/19 05:30 White Blood Count 6.6 K/UL (4.8-10.8) Red Blood Count 4.53 M/UL (4.70-6.10) L Hemoglobin 12.3 G/DL (14.2-18.0) L Hematocrit 37.5 % (42.0-52.0) L Mean Corpuscular Volume 83 FL (80-99) Mean Corpuscular Hemoglobin 27.2 PG (27.0-31.0) Mean Corpuscular Hemoglobin Concent 32.9 G/DL (32.0-36.0) Red Cell Distribution Width 12.7 % (11.6-14.8) Platelet Count 325 K/UL (150-450) Mean Platelet Volume 6.1 FL (6.5-10.1) L Neutrophils (%) (Auto) % (45.0-75.0) Lymphocytes (%) (Auto) % (20.0-45.0) Monocytes (%) (Auto) % (1.0-10.0) Eosinophils (%) (Auto) % (0.0-3.0) Basophils (%) (Auto) % (0.0-2.0) Differential Total Cells Counted 100 Neutrophils % (Manual) 31 % (45-75) L Lymphocytes % (Manual) 64 % (20-45) H Monocytes % (Manual) 5 % (1-10) Eosinophils % (Manual) 0 % (0-3) Basophils % (Manual) 0 % (0-2) Band Neutrophils 0 % (0-8) Platelet Estimate Adequate Platelet Morphology Normal Red Blood Cell Morphology Normal Sodium Level 141 MMOL/L (136-145) Potassium Level 3.5 MMOL/L (3.5-5.1) Chloride Level 103 MMOL/L (98-107) Carbon Dioxide Level 31 MMOL/L (21-32) Anion Gap 7 mmol/L (5-15) Blood Urea Nitrogen 11 mg/dL (7-18) Creatinine 0.6 MG/DL (0.55-1.30) Estimat Glomerular Filtration Rate > 60 mL/min (>60) Glucose Level 78 MG/DL (74-106) Calcium Level 9.2 MG/DL (8.5-10.1) Plan Problems: (1) Abnormal urogenital findings Assessment & Plan: Suprapubic catheter patient states was placed at [facility]. Functional without complication Continue to drainage bag (2) UTI (urinary tract infection) Assessment & Plan: Antibiotics per infectious disease Trend labs Thank you (3) Sacral decubitus ulcer, stage IV Assessment & Plan: 23-year-old male presents to [facility] and is admitted for further care and management identified to have decubitus ulcer on admission. States she had with a stage IV sacral decubitus ulcer that does show some signs of resolving and likely present for some time now. The patient' s sacrum and buttock area is near flat and identified to have a divot in the sacral region with scar tissue identified and a 3 cm x 3 cm open area 1 cm deep down to palpable sacrum. It is an abnormal wound which can be potentially consistent with potential debridement prior and closure and considerations for either bone debridement. Wound bed in total approximately 8 cm x 8 cm with scar tissue and healing open area as above. No active drainage. No signs of active acute infection. Patient also identified on admission to have a right ischial decubitus ulcer with palpable bone as well. There is overlying tissue granulation tissue identified and scar tissue showing signs of resolution and likely prior was larger and has received care since. No acute infection no drainage both wounds are clean without signs of active infection. No foul odor. Treatment plan Wash sacral and right ischial wounds daily with normal saline. Apply Thera honey impregnated gauze followed by foam dressing. Skin protectant Turn patient every 2 hours Offload heels with pillow Air mattress Nutritional optimization We will follow with recommendations thank you for let me participate in patient' s care Rock Reese Jul 12, 2019 14:27
[2019-07-12 16:00] VITALS: BP 122/80
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
--- NOTE | 2019-07-12 19:17 | NUR ---
HAND-OFF: Report given to KWAME Vázquez.
--- NOTE | 2019-07-12 19:41 | NUR ---
NURSE NOTES: Received patient comfortably sleeping without complaints. Kept clean and dry, bed in lowest position.
[2019-07-12 20:03] VITALS: BP 111/62
[2019-07-12] MEDS: Sennosides 8.6mg tab ORAL SCH (20:38)
[2019-07-12] MEDS: Milk of Magnesia 30ml Ud ORAL SCH (20:39)
[2019-07-13] VITALS: BP 111/67
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
[2019-07-13] MEDS: D5 1/2NS 1,000 ML IV SCH ×2 (04:09→21:00)
[2019-07-13 04:24] VITALS: BP 122/63
--- NOTE | 2019-07-13 07:10 | NUR ---
NURSE NOTES:handoff received from KWAME Vázquez. Patient received sleeping in bed, on room air, no acute signs of distress noted. Bed in the low and locked position, call light within reach, patient has suprapubic catheter patent and draining. Patient is on contact isolation. will continue to monitor patient.
--- NOTE | 2019-07-13 07:15 | NUR ---
HAND-OFF: Report given to Sung Hendricks RN.
[2019-07-13 07:56] VITALS: BP 118/70
[2019-07-13 09:04] LABS: BASOPHILS % (AUTO) 1.7 % (0.0-2.0); EOSINOPHILS % (AUTO) 2.1 % (0.0-3.0); HEMATOCRIT 39.1 % (42.0-52.0); HEMOGLOBIN 12.4 G/DL (14.2-18.0); LYMPHOCYTES % (AUTO) 43.9 % (20.0-45.0); MEAN CORPUSCULAR VOLUME 83 FL (80-99); MONOCYTES % (AUTO) 8.6 % (1.0-10.0); NEUTROPHILS % (AUTO) 43.6 % (45.0-75.0); PLATELET COUNT 311 K/UL (150-450); WHITE BLOOD COUNT 5.6 K/UL (4.8-10.8)
[2019-07-13 09:35] LABS: ANION GAP 8 mmol/L (5-15); BLOOD UREA NITROGEN 14 mg/dL (7-18); CALCIUM 9.3 MG/DL (8.5-10.1); CARBON DIOXIDE 30 MMOL/L (21-32); CHLORIDE 105 MMOL/L (98-107); CREATININE 0.7 MG/DL (0.55-1.30); POTASSIUM 4.2 MMOL/L (3.5-5.1); SODIUM 143 MMOL/L (136-145)
[2019-07-13] MEDS: Heparin 5000 units/ml inj SUBQ SCH ×2 (10:00→20:37)
[2019-07-13] MEDS: Multivitamin w/Minerals tab ORAL SCH (10:01)
[2019-07-13] MEDS: DULoxetine 30mg cap ORAL SCH ×2 (10:01→17:55)
[2019-07-13] MEDS: Amitiza 24mcg cap ORAL SCH ×2 (10:01→20:37)
[2019-07-13] MEDS: Miralax 17gm pkt ORAL SCH (10:01)
[2019-07-13] MEDS: Docusate 250mg cap ORAL SCH (10:02)
--- NOTE | 2019-07-13 11:53 | NUR ---
NURSE NOTES: Patient refusing IV fluids, Patient is taking in PO fluids. Contacted Dr Fransisco nam MD to make him aware. Addendum: 07/13/19 at 1155 by Sung Hendricks RN Also notified MD that Patient has been refusing Heparin.
[2019-07-13 12:00] VITALS: BP 125/80
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
--- NOTE | 2019-07-13 12:15 | NUR ---
NURSE NOTES:MD aware patient is refusing heparin and Iv fluids, no new orders.
[2019-07-13] MEDS: HYDROcodone/Acetamin 10/325 tab ORAL PRN (12:19)
--- NOTE | 2019-07-13 12:32 | NUR ---
CASE MANAGEMENT:REVIEW 07/12/2019 SI;SEPSIS. UTI. STAGE IV DECUBITUS. 98.0 78 19 130/84 96% ON RA IS;MACROBID PO Q12 HRS ROCEPHIN IV QD K-DUR PO QD HEPARIN SUBQ Q12 HRS IVF D5W @! 60 ML/HR MED SURG STATUS DCP;FROM [facility] Addendum: 07/13/19 at 1537 by DONNA ORTEGA LVN [employer] ADMINISTRATOR CASE MANAGEMENT:REVIEW 07/13/2019 SI;SEPSIS. UTI. STAGE IV DECUBITUS. 98.2 54 20 111/67 98% ON RA IS;MACROBID PO Q12 HRS ROCEPHIN IV QD K-DUR PO QD HEPARIN SUBQ Q12 HRS IVF D5W @ 60 ML/HR MED SURG STATUS DCP;FROM [facility]
--- NOTE | 2019-07-13 12:36 | General Progress Note ---
Assessment/Plan Problem List: (1) Sepsis ICD Codes: A41.9 - Sepsis, unspecified organism SNOMED: 79923834 (2) Paraplegia ICD Codes: G82.20 - Paraplegia, unspecified SNOMED: 59360921 (3) UTI (urinary tract infection) ICD Codes: N39.0 - Urinary tract infection, site not specified SNOMED: 31821833 (4) Sacral decubitus ulcer, stage IV ICD Codes: L89.154 - Pressure ulcer of sacral region, stage 4 SNOMED: 330376124, 502313868 Status: stable, progressing Assessment/Plan: pt diet wound care abx pain control cbc bmp am dc plan Subjective Constitutional: Reports: weakness Allergies: Coded Allergies: Dust (Verified Allergy, Unknown, skin rash and/or hives, 01/04/18) PIPERACILLIN (Verified Allergy, Unknown, skin rash and/or hives, 01/04/18) TAZOBACTAM (Verified Allergy, Unknown, skin rash and/or hives, 01/04/18) VANCOMYCIN (Verified Allergy, Unknown, skin rash and/or hives, 01/04/18) All Systems: reviewed and negative except above Subjective sleepy calm Objective Last 24 Hour Vital Signs Date Time Temp Pulse Resp B/P (MAP) Pulse Ox O2 Delivery O2 Flow Rate FiO2 07/13/19 09:00 Room Air 07/13/19 07:56 98.0 76 18 118/70 (86) 98 07/13/19 04:24 97.9 54 20 122/63 (82) 100 07/13/19 00:00 97.9 73 18 111/67 (82) 99 07/12/19 20:10 Room Air 07/12/19 20:03 97.9 71 18 111/62 (78) 100 07/12/19 16:00 98.0 68 19 122/80 (94) 99 Intake and Output 07/12/19 07/13/19 19:00 07:00 Intake Total 60 ml 580 ml Output Total 800 ml Balance 60 ml -220 ml IV Total 60 ml 180 ml Other 400 ml Output Urine Total 800 ml Laboratory Tests 07/13/19 08:30: White Blood Count 5.6, Red Blood Count 4.70, Hemoglobin 12.4L, Hematocrit 39.1L , Mean Corpuscular Volume 83, Mean Corpuscular Hemoglobin 26.5L, Mean Corpuscular Hemoglobin Concent 31.8L, Red Cell Distribution Width 13.0, Platelet Count 311, Mean Platelet Volume 5.7L, Neutrophils (%) (Auto) 43.6L, Lymphocytes (%) (Auto) 43.9, Monocytes (%) (Auto) 8.6, Eosinophils (%) (Auto) 2.1, Basophils (%) (Auto) 1.7, Sodium Level 143, Potassium Level 4.2, Chloride Level 105, Carbon Dioxide Level 30, Anion Gap 8, Blood Urea Nitrogen 14, Creatinine 0.7, Estimat Glomerular Filtration Rate > 60, Glucose Level 89, Calcium Level 9.3 Height (Feet): 6 Height (Inches): 1.00 Weight (Pounds): 175 General Appearance: lethargic EENT: normal ENT inspection Neck: normal alignment Cardiovascular: normal peripheral pulses, normal rate, regular rhythm Respiratory/Chest: chest wall non-tender, lungs clear, normal breath sounds Abdomen: normal bowel sounds, non tender, soft Extremities: normal inspection Edema: no edema noted Arm (L), no edema noted Arm (R), no edema noted Leg (L), no edema noted Leg (R), no edema noted Pedal (L), no edema noted Pedal (R), no edema noted Generalized Neurologic: motor weakness Skin: normal pigmentation, warm/dry Roger Moody DO Jul 13, 2019 12:36
--- NOTE | 2019-07-13 12:38 | NUR ---
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 CHARGE NURSE DOMINIC SIEGEL.
[2019-07-13 16:00] VITALS: BP 120/77
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
--- NOTE | 2019-07-13 17:08 | Surgery Progress Note ---
Surgery Progress Note Subjective Symptoms: tolerating diet, passing flatus Objective Last 24 Hour Vital Signs Date Time Temp Pulse Resp B/P (MAP) Pulse Ox O2 Delivery O2 Flow Rate FiO2 07/13/19 16:00 98.4 84 20 120/77 (91) 98 07/13/19 12:00 98.2 79 19 125/80 (95) 98 07/13/19 09:00 Room Air 07/13/19 07:56 98.0 76 18 118/70 (86) 98 07/13/19 04:24 97.9 54 20 122/63 (82) 100 07/13/19 00:00 97.9 73 18 111/67 (82) 99 07/12/19 20:10 Room Air 07/12/19 20:03 97.9 71 18 111/62 (78) 100 I&O Intake and Output 07/12/19 07/13/19 19:00 07:00 Intake Total 60 ml 580 ml Output Total 800 ml Balance 60 ml -220 ml IV Total 60 ml 180 ml Other 400 ml Output Urine Total 800 ml Dressing: dry Wound: clean Cardiovascular: RSR Respiratory: clear Abdomen: soft, flat, non-tender, present bowel sounds Extremities: edema, no tenderness, no cyanosis Laboratory Tests Test 07/13/19 08:30 White Blood Count 5.6 K/UL (4.8-10.8) Red Blood Count 4.70 M/UL (4.70-6.10) Hemoglobin 12.4 G/DL (14.2-18.0) L Hematocrit 39.1 % (42.0-52.0) L Mean Corpuscular Volume 83 FL (80-99) Mean Corpuscular Hemoglobin 26.5 PG (27.0-31.0) L Mean Corpuscular Hemoglobin Concent 31.8 G/DL (32.0-36.0) L Red Cell Distribution Width 13.0 % (11.6-14.8) Platelet Count 311 K/UL (150-450) Mean Platelet Volume 5.7 FL (6.5-10.1) L Neutrophils (%) (Auto) 43.6 % (45.0-75.0) L Lymphocytes (%) (Auto) 43.9 % (20.0-45.0) Monocytes (%) (Auto) 8.6 % (1.0-10.0) Eosinophils (%) (Auto) 2.1 % (0.0-3.0) Basophils (%) (Auto) 1.7 % (0.0-2.0) Sodium Level 143 MMOL/L (136-145) Potassium Level 4.2 MMOL/L (3.5-5.1) Chloride Level 105 MMOL/L (98-107) Carbon Dioxide Level 30 MMOL/L (21-32) Anion Gap 8 mmol/L (5-15) Blood Urea Nitrogen 14 mg/dL (7-18) Creatinine 0.7 MG/DL (0.55-1.30) Estimat Glomerular Filtration Rate > 60 mL/min (>60) Glucose Level 89 MG/DL (74-106) Calcium Level 9.3 MG/DL (8.5-10.1) Plan Problems: (1) Abnormal urogenital findings Assessment & Plan: Suprapubic catheter patient states was placed at [place]. Functional without complication Continue to drainage bag (2) UTI (urinary tract infection) Assessment & Plan: Antibiotics per infectious disease Trend labs Thank you (3) Sacral decubitus ulcer, stage IV Assessment & Plan: 23-year-old male presents to [facility] and is admitted for further care and management identified to have decubitus ulcer on admission. States she had with a stage IV sacral decubitus ulcer that does show some signs of resolving and likely present for some time now. The patient' s sacrum and buttock area is near flat and identified to have a divot in the sacral region with scar tissue identified and a 3 cm x 3 cm open area 1 cm deep down to palpable sacrum. It is an abnormal wound which can be potentially consistent with potential debridement prior and closure and considerations for either bone debridement. Wound bed in total approximately 8 cm x 8 cm with scar tissue and healing open area as above. No active drainage. No signs of active acute infection. Patient also identified on admission to have a right ischial decubitus ulcer with palpable bone as well. There is overlying tissue granulation tissue identified and scar tissue showing signs of resolution and likely prior was larger and has received care since. No acute infection no drainage both wounds are clean without signs of active infection. No foul odor. Treatment plan Wash sacral and right ischial wounds daily with normal saline. Apply Thera honey impregnated gauze followed by foam dressing. Skin protectant Turn patient every 2 hours Offload heels with pillow Air mattress Nutritional optimization We will follow with recommendations thank you for let me participate in patient' s care Rock Reese Jul 13, 2019 17:08
--- NOTE | 2019-07-13 19:26 | NUR ---
HAND-OFF: Report given to KWAME Abreu.
--- NOTE | 2019-07-13 19:36 | NUR ---
NURSE NOTES: Received patient comfortably resting in bed without complaints.
[2019-07-13 20:03] VITALS: BP 110/70
[2019-07-13] MEDS: Milk of Magnesia 30ml Ud ORAL SCH (20:37)
[2019-07-13] MEDS: Sennosides 8.6mg tab ORAL SCH (20:37)
[2019-07-14 00:09] VITALS: BP 120/67
--- NOTE | 2019-07-14 02:42 | NUR ---
HAND-OFF: Report given to KWAME Vieira.
--- NOTE | 2019-07-14 07:48 | NUR ---
HAND-OFF: Report given to KWAME Hutton.
--- NOTE | 2019-07-14 07:55 | NUR ---
NURSE NOTES: Received patient on bed, asleep. IV site intact and patent. Bed in low and locked position, call light in reach. Suprapubic catheter present and is intact, patent and draining. Bed in low anmd locked position, call light in reach. No signs of respiratory distress or pain. Room board updated, will continue to monitor.
[2019-07-14 08:00] VITALS: BP 114/58
--- NOTE | 2019-07-14 08:52 | General Progress Note ---
Assessment/Plan Problem List: (1) Sepsis ICD Codes: A41.9 - Sepsis, unspecified organism SNOMED: 75250584 (2) Paraplegia ICD Codes: G82.20 - Paraplegia, unspecified SNOMED: 16824769 (3) UTI (urinary tract infection) ICD Codes: N39.0 - Urinary tract infection, site not specified SNOMED: 97005415 (4) Sacral decubitus ulcer, stage IV ICD Codes: L89.154 - Pressure ulcer of sacral region, stage 4 SNOMED: 700425140, 838823653 Status: stable, progressing Assessment/Plan: pt diet wound care abx pain control cbc bmp am dc plan Subjective Constitutional: Reports: weakness Allergies: Coded Allergies: Dust (Verified Allergy, Unknown, skin rash and/or hives, 01/04/18) PIPERACILLIN (Verified Allergy, Unknown, skin rash and/or hives, 01/04/18) TAZOBACTAM (Verified Allergy, Unknown, skin rash and/or hives, 01/04/18) VANCOMYCIN (Verified Allergy, Unknown, skin rash and/or hives, 01/04/18) All Systems: reviewed and negative except above Subjective sleepy calm Objective Last 24 Hour Vital Signs Date Time Temp Pulse Resp B/P (MAP) Pulse Ox O2 Delivery O2 Flow Rate FiO2 07/14/19 08:00 97.4 71 18 114/58 (76) 97 07/14/19 00:09 98.4 68 18 120/67 (84) 98 07/13/19 20:19 Room Air 07/13/19 20:03 98.0 77 18 110/70 (83) 96 07/13/19 16:00 98.4 84 20 120/77 (91) 98 07/13/19 12:00 98.2 79 19 125/80 (95) 98 07/13/19 09:00 Room Air Intake and Output 07/13/19 07/14/19 18:59 06:59 Intake Total 1000 ml 400 ml Output Total 800 ml Balance 1000 ml -400 ml Intake Oral 1000 ml IV Total 0 ml Other 400 ml Output Urine Total 800 ml Height (Feet): 6 Height (Inches): 1.00 Weight (Pounds): 188 General Appearance: lethargic EENT: normal ENT inspection Neck: normal alignment Cardiovascular: normal peripheral pulses, normal rate, regular rhythm Respiratory/Chest: chest wall non-tender, lungs clear, normal breath sounds Abdomen: normal bowel sounds, non tender, soft Extremities: normal inspection Edema: no edema noted Arm (L), no edema noted Arm (R), no edema noted Leg (L), no edema noted Leg (R), no edema noted Pedal (L), no edema noted Pedal (R), no edema noted Generalized Neurologic: motor weakness Skin: normal pigmentation, warm/dry Roger Moody DO Jul 14, 2019 08:52
[2019-07-14 09:24] LABS: BASOPHILS % (AUTO) 1.3 % (0.0-2.0); EOSINOPHILS % (AUTO) 2.1 % (0.0-3.0); HEMATOCRIT 38.2 % (42.0-52.0); HEMOGLOBIN 12.5 G/DL (14.2-18.0); LYMPHOCYTES % (AUTO) 52.9 % (20.0-45.0); MEAN CORPUSCULAR VOLUME 83 FL (80-99); MONOCYTES % (AUTO) 7.8 % (1.0-10.0); NEUTROPHILS % (AUTO) 35.9 % (45.0-75.0); PLATELET COUNT 313 K/UL (150-450); RED BLOOD COUNT 4.62 M/UL (4.70-6.10); RED CELL DISTRIBUTION WIDTH 12.7 % (11.6-14.8)
[2019-07-14] MEDS: Miralax 17gm pkt ORAL SCH (09:36)
[2019-07-14] MEDS: DULoxetine 30mg cap ORAL SCH ×2 (09:36→17:35)
[2019-07-14 09:37] LABS: ANION GAP 6 mmol/L (5-15); BLOOD UREA NITROGEN 13 mg/dL (7-18); CALCIUM 9.2 MG/DL (8.5-10.1); CARBON DIOXIDE 31 MMOL/L (21-32); CHLORIDE 103 MMOL/L (98-107); CREATININE 0.7 MG/DL (0.55-1.30); POTASSIUM 3.5 MMOL/L (3.5-5.1); SODIUM 140 MMOL/L (136-145)
[2019-07-14] MEDS: Multivitamin w/Minerals tab ORAL SCH (09:37)
[2019-07-14] MEDS: Amitiza 24mcg cap ORAL SCH ×2 (09:37→20:42)
[2019-07-14] MEDS: Docusate 250mg cap ORAL SCH (09:37)
[2019-07-14] MEDS: Heparin 5000 units/ml inj SUBQ SCH ×2 (09:40→20:43)
[2019-07-14] MEDS: HYDROcodone/Acetamin 10/325 tab ORAL PRN ×2 (10:24→17:36)
--- NOTE | 2019-07-14 10:31 | NUR ---
RD ASSESSMENT & RECOMMENDATIONS SEE CARE ACTIVITY FOR COMPLETE ASSESSMENT DAILY ESTIMATED NEEDS: Needs based on Wound, paraplegic/ 74.5kg 28-30 kcals/kg 8209-2972 total kcals 1.25-1.5 g protein/kg 93-112 g total protein 25-30 mL/kg 9161-1679 total fluid mLs NUTRITION DIAGNOSIS: Increased kcal/prot intake needs R/T wound healing as evidenced by stage 4 sacral wound, h/o paraplegia. CURRENT DIET: Regular PO DIET RECOMMENDATIONS: Regular diet + double protein portions @ all meals ADDITIONAL RECOMMENDATIONS: * Wound healing: MVI w/ min 1 tab QD, Vit C 500mg BID Perfecto 1 pkt BID + ZnSO4 220mg qd x10 days * Rec to RECALIBRATE bed scale w/ added P200 mattress * Monitor for continued good po intake Add high pro snacks in b/w meals
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
--- NOTE | 2019-07-14 11:19 | Surgery Progress Note ---
Surgery Progress Note Subjective Additional Comments no acute events no complaints states feels better tolerating diet Objective Last 24 Hour Vital Signs Date Time Temp Pulse Resp B/P (MAP) Pulse Ox O2 Delivery O2 Flow Rate FiO2 07/14/19 09:00 Room Air 07/14/19 08:00 97.4 71 18 114/58 (76) 97 07/14/19 00:09 98.4 68 18 120/67 (84) 98 07/13/19 20:19 Room Air 07/13/19 20:03 98.0 77 18 110/70 (83) 96 07/13/19 16:00 98.4 84 20 120/77 (91) 98 07/13/19 12:00 98.2 79 19 125/80 (95) 98 I&O Intake and Output 07/13/19 07/14/19 19:00 07:00 Intake Total 1000 ml 400 ml Output Total 800 ml Balance 1000 ml -400 ml Intake Oral 1000 ml Other 400 ml Output Urine Total 800 ml Dressing: dry Wound: clean Cardiovascular: RSR Respiratory: clear Abdomen: soft, non-tender, present bowel sounds Extremities: no tenderness, no cyanosis Laboratory Tests Test 07/14/19 09:00 White Blood Count 5.0 K/UL (4.8-10.8) Red Blood Count 4.62 M/UL (4.70-6.10) L Hemoglobin 12.5 G/DL (14.2-18.0) L Hematocrit 38.2 % (42.0-52.0) L Mean Corpuscular Volume 83 FL (80-99) Mean Corpuscular Hemoglobin 26.9 PG (27.0-31.0) L Mean Corpuscular Hemoglobin Concent 32.6 G/DL (32.0-36.0) Red Cell Distribution Width 12.7 % (11.6-14.8) Platelet Count 313 K/UL (150-450) Mean Platelet Volume 5.9 FL (6.5-10.1) L Neutrophils (%) (Auto) 35.9 % (45.0-75.0) L Lymphocytes (%) (Auto) 52.9 % (20.0-45.0) H Monocytes (%) (Auto) 7.8 % (1.0-10.0) Eosinophils (%) (Auto) 2.1 % (0.0-3.0) Basophils (%) (Auto) 1.3 % (0.0-2.0) Sodium Level 140 MMOL/L (136-145) Potassium Level 3.5 MMOL/L (3.5-5.1) Chloride Level 103 MMOL/L (98-107) Carbon Dioxide Level 31 MMOL/L (21-32) Anion Gap 6 mmol/L (5-15) Blood Urea Nitrogen 13 mg/dL (7-18) Creatinine 0.7 MG/DL (0.55-1.30) Estimat Glomerular Filtration Rate > 60 mL/min (>60) Glucose Level 87 MG/DL (74-106) Calcium Level 9.2 MG/DL (8.5-10.1) Plan Problems: (1) Abnormal urogenital findings Assessment & Plan: Suprapubic catheter patient states was placed at [place]. Functional without complication Continue to drainage bag (2) UTI (urinary tract infection) Assessment & Plan: Antibiotics per infectious disease Trend labs Thank you (3) Sacral decubitus ulcer, stage IV Assessment & Plan: 23-year-old male presents to [facility] and is admitted for further care and management identified to have decubitus ulcer on admission. States she had with a stage IV sacral decubitus ulcer that does show some signs of resolving and likely present for some time now. The patient' s sacrum and buttock area is near flat and identified to have a divot in the sacral region with scar tissue identified and a 3 cm x 3 cm open area 1 cm deep down to palpable sacrum. It is an abnormal wound which can be potentially consistent with potential debridement prior and closure and considerations for either bone debridement. Wound bed in total approximately 8 cm x 8 cm with scar tissue and healing open area as above. No active drainage. No signs of active acute infection. Patient also identified on admission to have a right ischial decubitus ulcer with palpable bone as well. There is overlying tissue granulation tissue identified and scar tissue showing signs of resolution and likely prior was larger and has received care since. No acute infection no drainage both wounds are clean without signs of active infection. No foul odor. Treatment plan Wash sacral and right ischial wounds daily with normal saline. Apply Thera honey impregnated gauze followed by foam dressing. Skin protectant Turn patient every 2 hours Offload heels with pillow Air mattress Nutritional optimization We will follow with recommendations thank you for let me participate in patient' s care Rock Reese Jul 14, 2019 11:19
--- NOTE | 2019-07-14 12:15 | NUR ---
HAND-OFF: Report given to KWAME Garcia.
--- NOTE | 2019-07-14 12:16 | NUR ---
CASE MANAGEMENT:REVIEW SI;SEPSIS. UTI. STAGE IV SACRAL DECUB. 98.4 77 18 96% ON RA IS;MACROBID PO Q12 HRS NORCO PO Q6 HRS K-DUR PO QD HEPARIN SUBQ Q12 HRS MED SURG STATUS DCP;FROM [facility] WHEN ABLE TO ACCEPT COVID-19 TESTING REQUIRED BE SNF
--- NOTE | 2019-07-14 13:20 | NUR ---
NURSE NOTES: PT AXOX4, CALM, RESTING IN BED. PT DOES NOT WANT RN TO ATTEMPT IV ACCESS AT THIS TIME. PER PT, HE WANTS PRN DULCOLAX AND DRINK FLUIDS, THEN PT WILL CALL RN WHEN HE IS READY. PT IN NO APPARENT DISTRESS AT THIS TIME. BED IN LOWEST POSITION WITH BEDSIDE RAILS X3 RAISED. CALL LIGHT WITHIN REACH. SUPRAPUBIC CATHETER DRAINING YELLOW URINE BY GRAVITY. WILL CONTINUE TO MONITOR.
[2019-07-14] MEDS: D5 1/2NS 1,000 ML IV SCH ×2 (13:45→18:36)
[2019-07-14 16:00] VITALS: BP 128/69
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
--- NOTE | 2019-07-14 19:30 | NUR ---
HAND-OFF: Report given to Cherry MANN RN.
[2019-07-14 20:00] VITALS: BP 103/64
[2019-07-14] MEDS: Sennosides 8.6mg tab ORAL SCH (20:43)
[2019-07-14] MEDS: Milk of Magnesia 30ml Ud ORAL SCH (20:43)
[2019-07-15 00:26] VITALS: BP 113/63
--- NOTE | 2019-07-15 07:30 | NUR ---
NURSE NOTES: Report received from Kathie PUENTE. Patient is awake and alert x 4. Denies chest pain and shortness of breath. Patient noted to have 24 columba IV in left wrist with fluids running per MD orders. Patient noted to have suprapubic catheter draining clear yellow urine. Call light within reach. bed locked in lowest position. Will continue to follow plan of care.
--- NOTE | 2019-07-15 07:40 | NUR ---
HAND-OFF: Report given to Larry Espino RN.
[2019-07-15 08:00] VITALS: BP 120/75
[2019-07-15] MEDS: Miralax 17gm pkt ORAL SCH (09:24)
[2019-07-15] MEDS: Amitiza 24mcg cap ORAL SCH ×2 (09:24→20:25)
[2019-07-15] MEDS: DULoxetine 30mg cap ORAL SCH ×2 (09:25→17:13)
[2019-07-15] MEDS: Multivitamin w/Minerals tab ORAL SCH (09:25)
[2019-07-15] MEDS: Heparin 5000 units/ml inj SUBQ SCH ×2 (09:25→20:26)
[2019-07-15] MEDS: Docusate 250mg cap ORAL SCH (09:26)
[2019-07-15] MEDS: HYDROcodone/Acetamin 10/325 tab ORAL PRN (10:38)
[2019-07-15 10:42] LABS: BASOPHILS % (AUTO) 1.7 % (0.0-2.0); HEMATOCRIT 40.4 % (42.0-52.0); HEMOGLOBIN 12.9 G/DL (14.2-18.0); LYMPHOCYTES % (AUTO) 44.2 % (20.0-45.0); MEAN CORPUSCULAR VOLUME 82 FL (80-99); MONOCYTES % (AUTO) 7.9 % (1.0-10.0); NEUTROPHILS % (AUTO) 44.2 % (45.0-75.0); PLATELET COUNT 316 K/UL (150-450); RED BLOOD COUNT 4.91 M/UL (4.70-6.10); RED CELL DISTRIBUTION WIDTH 12.5 % (11.6-14.8); WHITE BLOOD COUNT 4.4 K/UL (4.8-10.8)
[2019-07-15 10:56] LABS: ANION GAP 11 mmol/L (5-15); BLOOD UREA NITROGEN 10 mg/dL (7-18); CALCIUM 9.4 MG/DL (8.5-10.1); CARBON DIOXIDE 27 MMOL/L (21-32); CHLORIDE 104 MMOL/L (98-107); CREATININE 0.7 MG/DL (0.55-1.30); POTASSIUM 3.8 MMOL/L (3.5-5.1); SODIUM 142 MMOL/L (136-145)
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
--- NOTE | 2019-07-15 11:30 | General Progress Note ---
Assessment/Plan Problem List: (1) Sepsis ICD Codes: A41.9 - Sepsis, unspecified organism SNOMED: 77090919 (2) Paraplegia ICD Codes: G82.20 - Paraplegia, unspecified SNOMED: 91376550 (3) UTI (urinary tract infection) ICD Codes: N39.0 - Urinary tract infection, site not specified SNOMED: 14960294 (4) Sacral decubitus ulcer, stage IV ICD Codes: L89.154 - Pressure ulcer of sacral region, stage 4 SNOMED: 480983730, 678017530 Status: stable, progressing Assessment/Plan: pt diet wound care abx pain control cbc bmp am dc plan Subjective Constitutional: Reports: weakness Allergies: Coded Allergies: Dust (Verified Allergy, Unknown, skin rash and/or hives, 01/04/18) PIPERACILLIN (Verified Allergy, Unknown, skin rash and/or hives, 01/04/18) TAZOBACTAM (Verified Allergy, Unknown, skin rash and/or hives, 01/04/18) VANCOMYCIN (Verified Allergy, Unknown, skin rash and/or hives, 01/04/18) All Systems: reviewed and negative except above Subjective sleepy calm Objective Last 24 Hour Vital Signs Date Time Temp Pulse Resp B/P (MAP) Pulse Ox O2 Delivery O2 Flow Rate FiO2 07/15/19 09:00 Room Air 07/15/19 08:00 98.0 88 18 120/75 (90) 98 07/15/19 00:26 97.6 79 18 113/63 (80) 96 07/14/19 21:27 Room Air 07/14/19 20:00 98.0 101 18 103/64 (77) 99 07/14/19 16:00 98.0 58 18 128/69 (88) 98 Intake and Output 07/14/19 07/15/19 19:00 07:00 Intake Total 480 ml 1120 ml Output Total 300 ml 800 ml Balance 180 ml 320 ml Intake Oral 480 ml IV Total 720 ml Other 400 ml Output Urine Total 800 ml Stool Total 300 ml Laboratory Tests 07/15/19 10:30: White Blood Count 4.4L, Red Blood Count 4.91, Hemoglobin 12.9L, Hematocrit 40.4L , Mean Corpuscular Volume 82, Mean Corpuscular Hemoglobin 26.2L, Mean Corpuscular Hemoglobin Concent 31.9L, Red Cell Distribution Width 12.5, Platelet Count 316, Mean Platelet Volume 5.4L, Neutrophils (%) (Auto) 44.2L, Lymphocytes (%) (Auto) 44.2, Monocytes (%) (Auto) 7.9, Eosinophils (%) (Auto) 2.0, Basophils (%) (Auto) 1.7, Sodium Level 142, Potassium Level 3.8, Chloride Level 104, Carbon Dioxide Level 27, Anion Gap 11, Blood Urea Nitrogen 10, Creatinine 0.7, Estimat Glomerular Filtration Rate > 60, Glucose Level 108H, Calcium Level 9.4 Height (Feet): 6 Height (Inches): 1.00 Weight (Pounds): 188 General Appearance: lethargic EENT: normal ENT inspection Neck: normal alignment Cardiovascular: normal peripheral pulses, normal rate, regular rhythm Respiratory/Chest: chest wall non-tender, lungs clear, normal breath sounds Abdomen: normal bowel sounds, non tender, soft Extremities: normal inspection Edema: no edema noted Arm (L), no edema noted Arm (R), no edema noted Leg (L), no edema noted Leg (R), no edema noted Pedal (L), no edema noted Pedal (R), no edema noted Generalized Neurologic: motor weakness Skin: normal pigmentation, warm/dry Roger Moody DO Jul 15, 2019 11:30
--- NOTE | 2019-07-15 11:35 | NUR ---
NURSE NOTES: Patient is refusing to have vital signs checked every four hours.Patient informed Larry PUENTE that previous nurses have not been checking as often. Patient informed Larry PUENTE that he will be okay and has the right to refuse. Larry PUENTE educated patient that he does have the right to refuse. Larry PUENTE stated that he cannot speak for the nurses actions before him. Larry PUENTE educated patient on reasoning for frequent checks. Larry PUENTE educated the importance of knowing current vital signs and risks of not knowing vital signs. Patient understood and informed Larry PUENTE that he "means no disrespect" but he will not have his vital signs checked at this time.
[2019-07-15] MEDS ORDERED: D5 1/2NS 1000ml IV ONE (14:17)
--- NOTE | 2019-07-15 14:27 | Surgery Progress Note ---
Surgery Progress Note Subjective Symptoms: improved Objective Last 24 Hour Vital Signs Date Time Temp Pulse Resp B/P (MAP) Pulse Ox O2 Delivery O2 Flow Rate FiO2 07/15/19 09:00 Room Air 07/15/19 08:00 98.0 88 18 120/75 (90) 98 07/15/19 00:26 97.6 79 18 113/63 (80) 96 07/14/19 21:27 Room Air 07/14/19 20:00 98.0 101 18 103/64 (77) 99 07/14/19 16:00 98.0 58 18 128/69 (88) 98 I&O Intake and Output 07/14/19 07/15/19 19:00 07:00 Intake Total 480 ml 1120 ml Output Total 300 ml 800 ml Balance 180 ml 320 ml Intake Oral 480 ml IV Total 720 ml Other 400 ml Output Urine Total 800 ml Stool Total 300 ml Dressing: other Wound: other Drains: other Cardiovascular: RSR Respiratory: decreased breath sounds Abdomen: soft, non-tender, present bowel sounds Extremities: no cyanosis Laboratory Tests Test 07/15/19 10:30 White Blood Count 4.4 K/UL (4.8-10.8) L Red Blood Count 4.91 M/UL (4.70-6.10) Hemoglobin 12.9 G/DL (14.2-18.0) L Hematocrit 40.4 % (42.0-52.0) L Mean Corpuscular Volume 82 FL (80-99) Mean Corpuscular Hemoglobin 26.2 PG (27.0-31.0) L Mean Corpuscular Hemoglobin Concent 31.9 G/DL (32.0-36.0) L Red Cell Distribution Width 12.5 % (11.6-14.8) Platelet Count 316 K/UL (150-450) Mean Platelet Volume 5.4 FL (6.5-10.1) L Neutrophils (%) (Auto) 44.2 % (45.0-75.0) L Lymphocytes (%) (Auto) 44.2 % (20.0-45.0) Monocytes (%) (Auto) 7.9 % (1.0-10.0) Eosinophils (%) (Auto) 2.0 % (0.0-3.0) Basophils (%) (Auto) 1.7 % (0.0-2.0) Sodium Level 142 MMOL/L (136-145) Potassium Level 3.8 MMOL/L (3.5-5.1) Chloride Level 104 MMOL/L (98-107) Carbon Dioxide Level 27 MMOL/L (21-32) Anion Gap 11 mmol/L (5-15) Blood Urea Nitrogen 10 mg/dL (7-18) Creatinine 0.7 MG/DL (0.55-1.30) Estimat Glomerular Filtration Rate > 60 mL/min (>60) Glucose Level 108 MG/DL (74-106) H Calcium Level 9.4 MG/DL (8.5-10.1) Plan Problems: (1) Abnormal urogenital findings Assessment & Plan: Suprapubic catheter patient states was placed at [place]. Functional without complication Continue to drainage bag (2) UTI (urinary tract infection) Assessment & Plan: Antibiotics per infectious disease Trend labs Thank you (3) Sacral decubitus ulcer, stage IV Assessment & Plan: 23-year-old male presents to [facility] and is admitted for further care and management identified to have decubitus ulcer on admission. States she had with a stage IV sacral decubitus ulcer that does show some signs of resolving and likely present for some time now. The patient' s sacrum and buttock area is near flat and identified to have a divot in the sacral region with scar tissue identified and a 3 cm x 3 cm open area 1 cm deep down to palpable sacrum. It is an abnormal wound which can be potentially consistent with potential debridement prior and closure and considerations for either bone debridement. Wound bed in total approximately 8 cm x 8 cm with scar tissue and healing open area as above. No active drainage. No signs of active acute infection. Patient also identified on admission to have a right ischial decubitus ulcer with palpable bone as well. There is overlying tissue granulation tissue identified and scar tissue showing signs of resolution and likely prior was larger and has received care since. No acute infection no drainage both wounds are clean without signs of active infection. No foul odor. Treatment plan Wash sacral and right ischial wounds daily with normal saline. Apply Thera honey impregnated gauze followed by foam dressing. Skin protectant Turn patient every 2 hours Offload heels with pillow Air mattress Nutritional optimization We will follow with recommendations thank you for let me participate in patient' s care Rock Reese Apr 2, 2020 14:27
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
--- NOTE | 2019-07-15 15:06 | NUR ---
CASE MANAGEMENT:REVIEW SI;SEPSIS. UTI. STAGE IV SACRAL DECUB. 98.0 101 18 103/64 96% ON RA IS;MACROBID PO Q12 HRS NORCO PO Q6 HRS K-DUR PO QD HEPARIN SUBQ Q12 HRS MED SURG STATUS DCP;FROM [facility] COVID-19 TESTING REQUIRED FOR SNF
[2019-07-15 16:00] VITALS: BP 124/71
--- NOTE | 2019-07-15 19:35 | NUR ---
HAND-OFF: Report given to Abram PUENTE.
--- NOTE | 2019-07-15 19:40 | NUR ---
NURSE NOTES: Pt. received from KWAME Juarez. Pt. AAOx4, on room air, no complaints of pain and no indications of respiratory distress. No IV access at this time, endorsed that MD is aware, will reattempt to establish access. Suprapubic catheter intact, draining yellow urine well. Bed is low and locked, side rails x2 up, bed alarm active, and call light is in reach. Will continue to monitor.
[2019-07-15 20:00] VITALS: BP 118/69
[2019-07-15] MEDS: Sennosides 8.6mg tab ORAL SCH (20:25)
[2019-07-15] MEDS: Milk of Magnesia 30ml Ud ORAL SCH (20:26)
[2019-07-15] MEDS: D5 1/2NS 1,000 ML IV SCH (23:05)
--- NOTE | 2019-07-15 23:21 | NUR ---
NURSE NOTES: Requested to attempt IV insertion, pt. refused, stating "I want to go to sleep." Charge nurse aware, will continue to monitor.
[2019-07-16 04:00] VITALS: BP 122/74
--- NOTE | 2019-07-16 07:15 | NUR ---
HAND-OFF: Report given to KWAME Pinzon.
--- NOTE | 2019-07-16 07:20 | NUR ---
NURSE NOTES: received report from KWAME Valverde. patient in bed. sleeping. no respiratory distress noted. no facial grimacing. No IV. MD is aware. Supra pubic cath draining. yellow. bed in the lowest position and locked. call light within reach. will continue to provide plan of care.
--- NOTE | 2019-07-16 08:37 | General Progress Note ---
Assessment/Plan Problem List: (1) Sepsis ICD Codes: A41.9 - Sepsis, unspecified organism SNOMED: 10545143 (2) Paraplegia ICD Codes: G82.20 - Paraplegia, unspecified SNOMED: 76832418 (3) UTI (urinary tract infection) ICD Codes: N39.0 - Urinary tract infection, site not specified SNOMED: 47183603 (4) Sacral decubitus ulcer, stage IV ICD Codes: L89.154 - Pressure ulcer of sacral region, stage 4 SNOMED: 761512813, 476252535 Status: stable, progressing Assessment/Plan: pt diet wound care abx pain control cbc bmp am dc if clear Subjective Constitutional: Reports: weakness Allergies: Coded Allergies: Dust (Verified Allergy, Unknown, skin rash and/or hives, 01/04/18) PIPERACILLIN (Verified Allergy, Unknown, skin rash and/or hives, 01/04/18) TAZOBACTAM (Verified Allergy, Unknown, skin rash and/or hives, 01/04/18) VANCOMYCIN (Verified Allergy, Unknown, skin rash and/or hives, 01/04/18) All Systems: reviewed and negative except above Subjective sleepy calm Objective Last 24 Hour Vital Signs Date Time Temp Pulse Resp B/P (MAP) Pulse Ox O2 Delivery O2 Flow Rate FiO2 07/16/19 04:00 97.5 58 18 122/74 (90) 96 07/15/19 21:00 Room Air 07/15/19 20:00 98.3 71 16 118/69 (85) 99 07/15/19 16:00 98.0 69 20 124/71 (88) 100 07/15/19 09:00 Room Air Intake and Output 07/15/19 07/16/19 19:00 07:00 Intake Total 820 ml Output Total 1250 ml Balance -430 ml Intake Oral 460 ml Other 360 ml Output Urine Total 1250 ml Laboratory Tests 07/15/19 10:30: White Blood Count 4.4L, Red Blood Count 4.91, Hemoglobin 12.9L, Hematocrit 40.4L , Mean Corpuscular Volume 82, Mean Corpuscular Hemoglobin 26.2L, Mean Corpuscular Hemoglobin Concent 31.9L, Red Cell Distribution Width 12.5, Platelet Count 316, Mean Platelet Volume 5.4L, Neutrophils (%) (Auto) 44.2L, Lymphocytes (%) (Auto) 44.2, Monocytes (%) (Auto) 7.9, Eosinophils (%) (Auto) 2.0, Basophils (%) (Auto) 1.7, Sodium Level 142, Potassium Level 3.8, Chloride Level 104, Carbon Dioxide Level 27, Anion Gap 11, Blood Urea Nitrogen 10, Creatinine 0.7, Estimat Glomerular Filtration Rate > 60, Glucose Level 108H, Calcium Level 9.4 Height (Feet): 6 Height (Inches): 1.00 Weight (Pounds): 188 General Appearance: lethargic EENT: normal ENT inspection Neck: normal alignment Cardiovascular: normal peripheral pulses, normal rate, regular rhythm Respiratory/Chest: chest wall non-tender, lungs clear, normal breath sounds Abdomen: normal bowel sounds, non tender, soft Extremities: normal inspection Edema: no edema noted Arm (L), no edema noted Arm (R), no edema noted Leg (L), no edema noted Leg (R), no edema noted Pedal (L), no edema noted Pedal (R), no edema noted Generalized Neurologic: motor weakness Skin: normal pigmentation, warm/dry Roger Moody DO Jul 16, 2019 08:37
[2019-07-16] MEDS: Heparin 5000 units/ml inj SUBQ SCH ×2 (09:00→20:40)
[2019-07-16] MEDS: DULoxetine 30mg cap ORAL SCH ×2 (10:04→18:25)
[2019-07-16] MEDS: Amitiza 24mcg cap ORAL SCH ×2 (10:04→20:30)
[2019-07-16] MEDS: Multivitamin w/Minerals tab ORAL SCH (10:04)
[2019-07-16] MEDS: Docusate 250mg cap ORAL SCH (10:04)
[2019-07-16] MEDS: Miralax 17gm pkt ORAL SCH (10:05)
--- NOTE | 2019-07-16 10:16 | NUR ---
RD ASSESSMENT & RECOMMENDATIONS SEE CARE ACTIVITY FOR COMPLETE ASSESSMENT DAILY ESTIMATED NEEDS: Needs based on Wound, paraplegic/ 74.5kg 28-30 kcals/kg 9088-5589 total kcals 1.25-1.5 g protein/kg 93-112 g total protein 25-30 mL/kg 9007-8218 total fluid mLs NUTRITION DIAGNOSIS: Increased kcal/prot intake needs R/T wound healing as evidenced by stage 4 sacral wound, h/o paraplegia. CURRENT DIET: Regular PO DIET RECOMMENDATIONS: Regular diet + double protein portions @ all meals ADDITIONAL RECOMMENDATIONS: * Wound healing: MVI w/ min 1 tab QD, Vit C 500mg BID Perfecto 1 pkt BID + ZnSO4 220mg qd x10 days * Rec to RECALIBRATE bed scale w/ added P200 mattress * Monitor for continued good po intake Add high pro snacks in b/w meals
[2019-07-16] MEDS: HYDROcodone/Acetamin 10/325 tab ORAL PRN ×2 (11:45→19:42)
[2019-07-16 12:00] VITALS: BP 126/79
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
--- NOTE | 2019-07-16 15:35 | NUR ---
CASE MANAGEMENT:REVIEW SI;SEPSIS. UTI. STAGE IV SACRAL DECUB. 98.3 58 18 118/69 96% ON RA IS;MACROBID PO Q12 HRS NORCO PO Q6 HRS K-DUR PO QD HEPARIN SUBQ Q12 HRS MED SURG STATUS DCP;FROM [facility] PENDING COVID-19 RESULT COVID-19 TESTING REQUIRED FOR RETURN TO SNF
[2019-07-16] MEDS: D5 1/2NS 1,000 ML IV SCH (15:45)
--- NOTE | 2019-07-16 19:02 | NUR ---
HAND-OFF: Report given to KWAME Valverde.
--- NOTE | 2019-07-16 19:26 | NUR ---
NURSE NOTES: Pt. received from KWAME Pinzon. Pt. AAOx4, on room air, breathing is even and unlabored, no indications of pain at this time. No IV access, MD aware. Suprapubic catheter draining yellow urine well. Bed is low and locked, side rails x2 up, bed alarm active, and call light is in reach. Will continue plan of care.
--- NOTE | 2019-07-16 19:31 | Surgery Progress Note ---
Surgery Progress Note Subjective Additional Comments no acute events comfortable states feels better states he is very happy about the food using air mattress and likes it Objective Last 24 Hour Vital Signs Date Time Temp Pulse Resp B/P (MAP) Pulse Ox O2 Delivery O2 Flow Rate FiO2 07/16/19 12:00 97.4 70 18 126/79 (95) 98 07/16/19 09:00 Room Air 07/16/19 04:00 97.5 58 18 122/74 (90) 96 07/15/19 21:00 Room Air 07/15/19 20:00 98.3 71 16 118/69 (85) 99 I&O Intake and Output 07/15/19 07/16/19 19:00 07:00 Intake Total 820 ml Output Total 1250 ml Balance -430 ml Intake Oral 460 ml Other 360 ml Output Urine Total 1250 ml Dressing: saturated Wound: other Drains: other Cardiovascular: RSR Respiratory: decreased breath sounds Abdomen: soft, non-tender, present bowel sounds Extremities: no cyanosis Plan Problems: (1) Abnormal urogenital findings Assessment & Plan: Suprapubic catheter patient states was placed at [place]. Functional without complication Continue to drainage bag DAILY ESTIMATED NEEDS: Needs based on wounds, pulmonary, 104.5kg abw 25-30 kcals/kg 1585-5085 total kcals 1.25-2 g protein/kg 131-209 g total protein 25-30 mL/kg 6466-3876 total fluid mLs NUTRITION DIAGNOSIS: * Increased kcal and pro needs r/t wound care as evidenced by h/o CVA, GT dep, w/ full thickness wounds @ sacrum, lateral L tibia, dorsal L foot, L heel extending into lateral/mid plantar aspect of L foot, R tibia, R lateral Malleolus, and R heel extending well into lateral and distal plantar. CURRENT TF:Glucerna 1.2 @ 60ml/hr x 24 hrs ENTERAL NUTRITION RECOMMENDATIONS: Glucerna 1.5 @ 70ml/hr x24 hrs to provide 1680ml, 2520kcal, 139g prot, 1275ml free water - Rec TF change to Glucerna 1.5 to better meet needs - Initiate Glucerna 1.5 @ 30ml/hr for 6 hrs, advance as tolerated 15ml/hr q4-6 hrs to goal. - Flush per MD, HOB over 30 degrees - Will meet 97% est kcal and 100% est prot needs ADDITIONAL RECOMMENDATIONS: 1) Per SNF: HT 79 inches, WT 260lbs 2) Wound care: add Vit C 500mg BID + ZnSO4 220mg QD x 10 days add Perfecto 1pkt BID via PEG 3) Monitor BGs closely w/ TF, need for additional hypoglycemics -> now w/ improved BGs 4) Monitor lytes, replete as needed (2) UTI (urinary tract infection) Assessment & Plan: Antibiotics per infectious disease Trend labs Thank you (3) Sacral decubitus ulcer, stage IV Assessment & Plan: 23-year-old male presents to [facility] and is admitted for further care and management identified to have decubitus ulcer on admission. States she had with a stage IV sacral decubitus ulcer that does show some signs of resolving and likely present for some time now. The patient' s sacrum and buttock area is near flat and identified to have a divot in the sacral region with scar tissue identified and a 3 cm x 3 cm open area 1 cm deep down to palpable sacrum. It is an abnormal wound which can be potentially consistent with potential debridement prior and closure and considerations for either bone debridement. Wound bed in total approximately 8 cm x 8 cm with scar tissue and healing open area as above. No active drainage. No signs of active acute infection. Patient also identified on admission to have a right ischial decubitus ulcer with palpable bone as well. There is overlying tissue granulation tissue identified and scar tissue showing signs of resolution and likely prior was larger and has received care since. No acute infection no drainage both wounds are clean without signs of active infection. No foul odor. Treatment plan Wash sacral and right ischial wounds daily with normal saline. Apply Thera honey impregnated gauze followed by foam dressing. Skin protectant Turn patient every 2 hours Offload heels with pillow Air mattress Nutritional optimization We will follow with recommendations thank you for let me participate in patient' s care Rock Reese Jul 16, 2019 19:31
[2019-07-16 20:00] VITALS: BP 133/76
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
[2019-07-16] MEDS: Sennosides 8.6mg tab ORAL SCH (20:30)
[2019-07-16] MEDS: Milk of Magnesia 30ml Ud ORAL SCH (20:39)
--- NOTE | 2019-07-16 20:40 | NUR ---
NURSE NOTES: Changed pt's dressing around suprapubic catheter. Scant amount of light red drainage, pt. tolerated well. Will continue to monitor.
[2019-07-17] VITALS: BP 128/66
--- NOTE | 2019-07-17 00:27 | NUR ---
NURSE NOTES: Wound dressings changed: sacral, left ischium, right ischium. Wound pictures taken. Pt. tolerated well. Will continue to monitor.
--- NOTE | 2019-07-17 07:15 | NUR ---
NURSE NOTES: Charge nurse received notification from Nursing Professor [employer] Morales wangid results negative.
--- NOTE | 2019-07-17 07:20 | NUR ---
HAND-OFF: Report given to KWAME Pinzon.
--- NOTE | 2019-07-17 07:45 | NUR ---
NURSE NOTES: received report from KWAME Valverde. Patient in bed. sleeping. no respiratory distress noted on room air. no facial grimacing. no IV. MD is aware. mattress for wound management. contact isolation. PPE at all times. covid-19 negative. bed in the lowest position and locked. call light within reach. will continue to provide plan of care.
--- NOTE | 2019-07-17 07:56 | NUR ---
NURSE NOTES: Notified Dr. Moody that the covid19 result is negative.
[2019-07-17 08:00] VITALS: BP 130/82
[2019-07-17] MEDS: Miralax 17gm pkt ORAL SCH (09:00)
[2019-07-17] MEDS: Heparin 5000 units/ml inj SUBQ SCH ×2 (09:00→20:16)
--- NOTE | 2019-07-17 09:02 | General Progress Note ---
Assessment/Plan Problem List: (1) Sepsis ICD Codes: A41.9 - Sepsis, unspecified organism SNOMED: 25893305 (2) Paraplegia ICD Codes: G82.20 - Paraplegia, unspecified SNOMED: 43060301 (3) UTI (urinary tract infection) ICD Codes: N39.0 - Urinary tract infection, site not specified SNOMED: 56980673 (4) Sacral decubitus ulcer, stage IV ICD Codes: L89.154 - Pressure ulcer of sacral region, stage 4 SNOMED: 093296455, 282923543 Status: stable, progressing Assessment/Plan: pt diet wound care abx pain control cbc bmp am dc if clear Subjective Constitutional: Reports: weakness Allergies: Coded Allergies: Dust (Verified Allergy, Unknown, skin rash and/or hives, 01/04/18) PIPERACILLIN (Verified Allergy, Unknown, skin rash and/or hives, 01/04/18) TAZOBACTAM (Verified Allergy, Unknown, skin rash and/or hives, 01/04/18) VANCOMYCIN (Verified Allergy, Unknown, skin rash and/or hives, 01/04/18) All Systems: reviewed and negative except above Subjective sleepy calm Objective Last 24 Hour Vital Signs Date Time Temp Pulse Resp B/P (MAP) Pulse Ox O2 Delivery O2 Flow Rate FiO2 07/17/19 00:00 98.4 83 19 128/66 (86) 97 07/16/19 21:00 Room Air 07/16/19 20:00 97.7 69 18 133/76 (95) 100 07/16/19 12:00 97.4 70 18 126/79 (95) 98 Intake and Output 07/16/19 07/17/19 19:00 07:00 Intake Total 600 ml Output Total 1200 ml 450 ml Balance -600 ml -450 ml Intake Oral 600 ml Output Urine Total 1200 ml 450 ml # Voids 1 Height (Feet): 6 Height (Inches): 1.00 Weight (Pounds): 188 General Appearance: lethargic EENT: normal ENT inspection Neck: normal alignment Cardiovascular: normal peripheral pulses, normal rate, regular rhythm Respiratory/Chest: chest wall non-tender, lungs clear, normal breath sounds Abdomen: normal bowel sounds, non tender, soft Extremities: normal inspection Edema: no edema noted Arm (L), no edema noted Arm (R), no edema noted Leg (L), no edema noted Leg (R), no edema noted Pedal (L), no edema noted Pedal (R), no edema noted Generalized Neurologic: motor weakness Skin: normal pigmentation, warm/dry Roger Moody DO Jul 17, 2019 09:02
[2019-07-17] MEDS: Docusate 250mg cap ORAL SCH (09:59)
[2019-07-17] MEDS: Multivitamin w/Minerals tab ORAL SCH (09:59)
[2019-07-17] MEDS: Amitiza 24mcg cap ORAL SCH ×2 (09:59→20:15)
[2019-07-17] MEDS: DULoxetine 30mg cap ORAL SCH ×2 (09:59→17:40)
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
[2019-07-17 12:00] VITALS: BP 134/79
--- NOTE | 2019-07-17 15:04 | Surgery Progress Note ---
Surgery Progress Note Subjective Symptoms: improved, tolerating diet, passing flatus Objective Last 24 Hour Vital Signs Date Time Temp Pulse Resp B/P (MAP) Pulse Ox O2 Delivery O2 Flow Rate FiO2 07/17/19 12:00 98.0 86 18 134/79 (97) 98 07/17/19 09:00 Room Air 07/17/19 08:00 97.7 81 18 130/82 (98) 99 07/17/19 00:00 98.4 83 19 128/66 (86) 97 07/16/19 21:00 Room Air 07/16/19 20:00 97.7 69 18 133/76 (95) 100 I&O Intake and Output 07/16/19 07/17/19 19:00 07:00 Intake Total 600 ml Output Total 1200 ml 450 ml Balance -600 ml -450 ml Intake Oral 600 ml Output Urine Total 1200 ml 450 ml # Voids 1 Dressing: saturated Wound: other Cardiovascular: RSR Abdomen: non-tender, present bowel sounds Extremities: no tenderness, no cyanosis Plan Problems: (1) Abnormal urogenital findings Assessment & Plan: Suprapubic catheter patient states was placed at [place]. Functional without complication Continue to drainage bag DAILY ESTIMATED NEEDS: Needs based on wounds, pulmonary, 104.5kg abw 25-30 kcals/kg 1146-6092 total kcals 1.25-2 g protein/kg 131-209 g total protein 25-30 mL/kg 4714-7933 total fluid mLs NUTRITION DIAGNOSIS: * Increased kcal and pro needs r/t wound care as evidenced by h/o CVA, GT dep, w/ full thickness wounds @ sacrum, lateral L tibia, dorsal L foot, L heel extending into lateral/mid plantar aspect of L foot, R tibia, R lateral Malleolus, and R heel extending well into lateral and distal plantar. CURRENT TF:Glucerna 1.2 @ 60ml/hr x 24 hrs ENTERAL NUTRITION RECOMMENDATIONS: Glucerna 1.5 @ 70ml/hr x24 hrs to provide 1680ml, 2520kcal, 139g prot, 1275ml free water - Rec TF change to Glucerna 1.5 to better meet needs - Initiate Glucerna 1.5 @ 30ml/hr for 6 hrs, advance as tolerated 15ml/hr q4-6 hrs to goal. - Flush per MD, HOB over 30 degrees - Will meet 97% est kcal and 100% est prot needs ADDITIONAL RECOMMENDATIONS: 1) Per SNF: HT 79 inches, WT 260lbs 2) Wound care: add Vit C 500mg BID + ZnSO4 220mg QD x 10 days add Perfecto 1pkt BID via PEG 3) Monitor BGs closely w/ TF, need for additional hypoglycemics -> now w/ improved BGs 4) Monitor lytes, replete as needed (2) UTI (urinary tract infection) Assessment & Plan: Antibiotics per infectious disease Trend labs Thank you (3) Sacral decubitus ulcer, stage IV Assessment & Plan: 23-year-old male presents to [facility] and is admitted for further care and management identified to have decubitus ulcer on admission. States she had with a stage IV sacral decubitus ulcer that does show some signs of resolving and likely present for some time now. The patient' s sacrum and buttock area is near flat and identified to have a divot in the sacral region with scar tissue identified and a 3 cm x 3 cm open area 1 cm deep down to palpable sacrum. It is an abnormal wound which can be potentially consistent with potential debridement prior and closure and considerations for either bone debridement. Wound bed in total approximately 8 cm x 8 cm with scar tissue and healing open area as above. No active drainage. No signs of active acute infection. Patient also identified on admission to have a right ischial decubitus ulcer with palpable bone as well. There is overlying tissue granulation tissue identified and scar tissue showing signs of resolution and likely prior was larger and has received care since. No acute infection no drainage both wounds are clean without signs of active infection. No foul odor. Treatment plan Wash sacral and right ischial wounds daily with normal saline. Apply Thera honey impregnated gauze followed by foam dressing. Skin protectant Turn patient every 2 hours Offload heels with pillow Air mattress Nutritional optimization We will follow with recommendations thank you for let me participate in patient' s care Rock Reese Jul 17, 2019 15:04
[2019-07-17 16:00] VITALS: BP 129/76
--- NOTE | 2019-07-17 19:20 | NUR ---
HAND-OFF: Report given to KWAME Vázquez.
--- NOTE | 2019-07-17 20:00 | NUR ---
NURSE NOTES: Received patient awake, alert, verbal, paraplegic but able to turn by himself, with essentially normal vital signs.
[2019-07-17 20:02] VITALS: BP 129/77
[2019-07-17] MEDS: Milk of Magnesia 30ml Ud ORAL SCH (20:16)
[2019-07-17] MEDS: Sennosides 8.6mg tab ORAL SCH (20:16)
[2019-07-17] MEDS: HYDROcodone/Acetamin 10/325 tab ORAL PRN (20:21)
[2019-07-18 04:00] VITALS: BP 114/73
--- NOTE | 2019-07-18 07:11 | NUR ---
HAND-OFF: Report given to Alberta Norton RN.
--- NOTE | 2019-07-18 07:39 | NUR ---
NURSE NOTES: received report from KWAME Vázquez. patient in bed, a&Ox4, verbally responsive. no respiratory distress noted, no pain at this time, no IV. MD is aware. P200 mattress for wound management. bed in the lowest position and locked, call light within reach. will continue to provide plan of care.
[2019-07-18] MEDS: Heparin 5000 units/ml inj SUBQ SCH ×2 (09:00→20:36)
[2019-07-18] MEDS: Miralax 17gm pkt ORAL SCH ×2 (09:00→21:56)
--- NOTE | 2019-07-18 09:05 | General Progress Note ---
Assessment/Plan Problem List: (1) Sepsis ICD Codes: A41.9 - Sepsis, unspecified organism SNOMED: 49793692 (2) Paraplegia ICD Codes: G82.20 - Paraplegia, unspecified SNOMED: 44796729 (3) UTI (urinary tract infection) ICD Codes: N39.0 - Urinary tract infection, site not specified SNOMED: 35568204 (4) Sacral decubitus ulcer, stage IV ICD Codes: L89.154 - Pressure ulcer of sacral region, stage 4 SNOMED: 705023839, 882172390 Status: stable, progressing Assessment/Plan: pt diet wound care abx pain control cbc bmp am dc if clear Subjective Constitutional: Reports: weakness Allergies: Coded Allergies: Dust (Verified Allergy, Unknown, skin rash and/or hives, 01/04/18) PIPERACILLIN (Verified Allergy, Unknown, skin rash and/or hives, 01/04/18) TAZOBACTAM (Verified Allergy, Unknown, skin rash and/or hives, 01/04/18) VANCOMYCIN (Verified Allergy, Unknown, skin rash and/or hives, 01/04/18) All Systems: reviewed and negative except above Subjective sleepy calm Objective Last 24 Hour Vital Signs Date Time Temp Pulse Resp B/P (MAP) Pulse Ox O2 Delivery O2 Flow Rate FiO2 07/18/19 04:00 97.3 85 18 114/73 (87) 98 07/17/19 20:56 Room Air 07/17/19 20:55 98.4 07/17/19 20:02 98.4 69 18 129/77 (94) 99 07/17/19 16:00 98.4 88 19 129/76 (93) 98 07/17/19 12:00 98.0 86 18 134/79 (97) 98 Intake and Output 07/17/19 07/18/19 19:00 07:00 Intake Total 1000 ml 800 ml Output Total 800 ml Balance 1000 ml 0 ml Intake Oral 1000 ml 800 ml Output Urine Total 800 ml # Bowel Movements 1 Height (Feet): 6 Height (Inches): 1.00 Weight (Pounds): 188 General Appearance: lethargic EENT: normal ENT inspection Neck: normal alignment Cardiovascular: normal peripheral pulses, normal rate, regular rhythm Respiratory/Chest: chest wall non-tender, lungs clear, normal breath sounds Abdomen: normal bowel sounds, non tender, soft Extremities: normal inspection Edema: no edema noted Arm (L), no edema noted Arm (R), no edema noted Leg (L), no edema noted Leg (R), no edema noted Pedal (L), no edema noted Pedal (R), no edema noted Generalized Neurologic: motor weakness Skin: normal pigmentation, warm/dry Roger Moody DO Jul 18, 2019 09:05
[2019-07-18] MEDS: DULoxetine 30mg cap ORAL SCH ×2 (09:43→17:13)
[2019-07-18] MEDS: Multivitamin w/Minerals tab ORAL SCH (09:43)
[2019-07-18] MEDS: Amitiza 24mcg cap ORAL SCH ×2 (09:44→20:35)
[2019-07-18] MEDS: Docusate 250mg cap ORAL SCH (09:44)
[2019-07-18 12:00] VITALS: BP 126/76
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
--- NOTE | 2019-07-18 13:06 | NUR ---
NURSE NOTES: patient refused taking baclofe, neurontin. RN explained risks and benefits. patient said he would take evening dose. will continue to monitor patient's condition.
[2019-07-18] MEDS: HYDROcodone/Acetamin 10/325 tab ORAL PRN (15:10)
[2019-07-18 16:00] VITALS: BP 136/80
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
--- NOTE | 2019-07-18 19:13 | NUR ---
HAND-OFF: Report given to KWAME Vázquez
[2019-07-18 19:56] VITALS: BP 102/63
--- NOTE | 2019-07-18 20:23 | NUR ---
NURSE NOTES: Received patient awake, alert, verbal, resting in bed, comfortable.
[2019-07-18] MEDS: Milk of Magnesia 30ml Ud ORAL SCH (20:35)
[2019-07-18] MEDS: Sennosides 8.6mg tab ORAL SCH (20:35)
[2019-07-19 04:00] VITALS: BP 120/74
--- NOTE | 2019-07-19 07:15 | NUR ---
HAND-OFF: Report given to Anat Yu RN.
--- NOTE | 2019-07-19 07:35 | NUR ---
NURSE NOTES: Received patient in bed asleep. No SOB or acute distress. HOB elevated. Bed locked in lowest position. Will continue plan of care.
[2019-07-19 08:00] VITALS: BP 106/70
[2019-07-19] MEDS: DULoxetine 30mg cap ORAL SCH (08:20)
[2019-07-19] MEDS: Multivitamin w/Minerals tab ORAL SCH (08:21)
[2019-07-19] MEDS: Docusate 250mg cap ORAL SCH (08:21)
[2019-07-19] MEDS: Amitiza 24mcg cap ORAL SCH (08:21)
[2019-07-19] MEDS: Heparin 5000 units/ml inj SUBQ SCH ×2 (08:24→08:32)
[2019-07-19] MEDS ORDERED: Miralax 17gm pkt ORAL SCH (09:00)
--- NOTE | 2019-07-19 09:10 | General Progress Note ---
Assessment/Plan Problem List: (1) Sepsis ICD Codes: A41.9 - Sepsis, unspecified organism SNOMED: 15270826 (2) Paraplegia ICD Codes: G82.20 - Paraplegia, unspecified SNOMED: 89710612 (3) UTI (urinary tract infection) ICD Codes: N39.0 - Urinary tract infection, site not specified SNOMED: 77587074 (4) Sacral decubitus ulcer, stage IV ICD Codes: L89.154 - Pressure ulcer of sacral region, stage 4 SNOMED: 990865619, 446585243 Status: stable, progressing Assessment/Plan: pt diet wound care abx pain control cbc bmp am dc if clear Subjective Constitutional: Reports: weakness Allergies: Coded Allergies: Dust (Verified Allergy, Unknown, skin rash and/or hives, 01/04/18) PIPERACILLIN (Verified Allergy, Unknown, skin rash and/or hives, 01/04/18) TAZOBACTAM (Verified Allergy, Unknown, skin rash and/or hives, 01/04/18) VANCOMYCIN (Verified Allergy, Unknown, skin rash and/or hives, 01/04/18) All Systems: reviewed and negative except above Subjective sleepy calm Objective Last 24 Hour Vital Signs Date Time Temp Pulse Resp B/P (MAP) Pulse Ox O2 Delivery O2 Flow Rate FiO2 07/19/19 08:00 98.4 72 17 106/70 (82) 98 07/19/19 04:00 97.8 80 19 120/74 (89) 96 07/18/19 21:46 Room Air 07/18/19 19:56 98.0 86 18 102/63 (76) 98 07/18/19 16:00 98.1 99 19 136/80 (98) 100 07/18/19 12:00 97.9 80 18 126/76 (93) 99 Intake and Output 07/18/19 07/19/19 19:00 07:00 Intake Total 1000 ml 800 ml Output Total 600 ml Balance 1000 ml 200 ml Intake Oral 1000 ml 800 ml Output Urine Total 600 ml # Bowel Movements 1 Height (Feet): 6 Height (Inches): 1.00 Weight (Pounds): 188 General Appearance: lethargic EENT: normal ENT inspection Neck: normal alignment Cardiovascular: normal peripheral pulses, normal rate, regular rhythm Respiratory/Chest: chest wall non-tender, lungs clear Abdomen: normal bowel sounds, non tender, soft Extremities: normal inspection Edema: no edema noted Arm (L), no edema noted Arm (R), no edema noted Leg (L), no edema noted Leg (R), no edema noted Pedal (L), no edema noted Pedal (R), no edema noted Generalized Neurologic: motor weakness Skin: normal pigmentation, warm/dry Roger Moody DO Jul 19, 2019 09:10
[2019-07-19 11:04] LABS: BASOPHILS % (AUTO) 1.9 % (0.0-2.0); EOSINOPHILS % (AUTO) 1.1 % (0.0-3.0); HEMATOCRIT 42.2 % (42.0-52.0); HEMOGLOBIN 13.6 G/DL (14.2-18.0); LYMPHOCYTES % (AUTO) 42.9 % (20.0-45.0); MEAN CORPUSCULAR VOLUME 83 FL (80-99); MONOCYTES % (AUTO) 9.4 % (1.0-10.0); NEUTROPHILS % (AUTO) 44.7 % (45.0-75.0); PLATELET COUNT 340 K/UL (150-450); WHITE BLOOD COUNT 4.8 K/UL (4.8-10.8)
[2019-07-19 11:21] LABS: ANION GAP 9 mmol/L (5-15); BLOOD UREA NITROGEN 16 mg/dL (7-18); CALCIUM 9.7 MG/DL (8.5-10.1); CARBON DIOXIDE 30 MMOL/L (21-32); CHLORIDE 101 MMOL/L (98-107); CREATININE 0.7 MG/DL (0.55-1.30); POTASSIUM 4.2 MMOL/L (3.5-5.1); SODIUM 139 MMOL/L (136-145)
--- NOTE | 2019-07-19 11:56 | NUR ---
DISCHARGE PLANNING PATIENT HAS BEEN REFERRED BACK TO [facility] P: [phone] F: [phone] Addendum: 07/19/19 at 1444 by DONNA ORTEGA LVN LVN PER NELA AT [facility]. CONFIRMED PATIENT ACCEPTED TO RETURN TO ROOM 104-A SKILLED BLS AMBULANCE TRANSPORTATION SCHEDULED WITH [facility] @ EXT 7112 WITH ETA @ 1546 PER [facility]
[2019-07-19 12:00] VITALS: BP 105/73
[2019-07-19] MEDS ORDERED: BACLOFEN10 MG ORAL (13:20)
[2019-07-19] MEDS ORDERED: DULCOLAX10 MG RC (13:21)
[2019-07-19] MEDS ORDERED: DOCUSATE SODIU250 MG ORAL (13:24)
[2019-07-19] MEDS ORDERED: CYMBALTA30 MG ORAL (13:26)
[2019-07-19] MEDS ORDERED: HEPARIN SO5000 UNIT2 SUBQ (13:27)
[2019-07-19] MEDS ORDERED: IBUPROFEN600 M1 ORAL (13:28)
[2019-07-19] MEDS ORDERED: MINERAL OIL EN133 ML RC (13:29)
[2019-07-19] MEDS ORDERED: MIRALAX17 G2 ORAL (13:30)
[2019-07-19] MEDS ORDERED: SENNA8.6 M2 PO (13:31)
[2019-07-19] MEDS ORDERED: HYDROcodone/Acetamin 10/325 tab ORAL PRN (15:45)
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
--- NOTE | 2019-07-19 16:49 | NUR ---
NURSE NOTES: Gave report to licensed nurse Natali Honeycutt at [facility] on telephone.
--- NOTE | 2019-07-19 17:00 | NUR ---
NURSE NOTES: Patient for discharge to [facility]. ID band removed. Belongings accounted for. No new skin issues noted. Suprapubic catheter intact. Transported by ambulance accompanied by ambulance personnel.
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
--- NOTE | 2019-07-19 17:42 | Surgery Progress Note ---
Surgery Progress Note Subjective Symptoms: improved, tolerating diet, voiding well, passing flatus, BM Objective Last 24 Hour Vital Signs Date Time Temp Pulse Resp B/P (MAP) Pulse Ox O2 Delivery O2 Flow Rate FiO2 07/19/19 12:00 98.3 74 18 105/73 (84) 98 07/19/19 09:00 Room Air 07/19/19 08:00 98.4 72 17 106/70 (82) 98 07/19/19 04:00 97.8 80 19 120/74 (89) 96 07/18/19 21:46 Room Air 07/18/19 19:56 98.0 86 18 102/63 (76) 98 I&O Intake and Output 07/18/19 07/19/19 19:00 07:00 Intake Total 1000 ml 800 ml Output Total 600 ml Balance 1000 ml 200 ml Intake Oral 1000 ml 800 ml Output Urine Total 600 ml # Bowel Movements 1 Dressing: saturated Wound: clean Cardiovascular: RSR Respiratory: clear Abdomen: soft, non-tender, present bowel sounds Extremities: no cyanosis, other Laboratory Tests Test 07/19/19 10:45 White Blood Count 4.8 K/UL (4.8-10.8) Red Blood Count 5.10 M/UL (4.70-6.10) Hemoglobin 13.6 G/DL (14.2-18.0) L Hematocrit 42.2 % (42.0-52.0) Mean Corpuscular Volume 83 FL (80-99) Mean Corpuscular Hemoglobin 26.7 PG (27.0-31.0) L Mean Corpuscular Hemoglobin Concent 32.3 G/DL (32.0-36.0) Red Cell Distribution Width 13.0 % (11.6-14.8) Platelet Count 340 K/UL (150-450) Mean Platelet Volume 6.0 FL (6.5-10.1) L Neutrophils (%) (Auto) 44.7 % (45.0-75.0) L Lymphocytes (%) (Auto) 42.9 % (20.0-45.0) Monocytes (%) (Auto) 9.4 % (1.0-10.0) Eosinophils (%) (Auto) 1.1 % (0.0-3.0) Basophils (%) (Auto) 1.9 % (0.0-2.0) Sodium Level 139 MMOL/L (136-145) Potassium Level 4.2 MMOL/L (3.5-5.1) Chloride Level 101 MMOL/L (98-107) Carbon Dioxide Level 30 MMOL/L (21-32) Anion Gap 9 mmol/L (5-15) Blood Urea Nitrogen 16 mg/dL (7-18) Creatinine 0.7 MG/DL (0.55-1.30) Estimat Glomerular Filtration Rate > 60 mL/min (>60) Glucose Level 84 MG/DL (74-106) Calcium Level 9.7 MG/DL (8.5-10.1) Plan Problems: (1) Abnormal urogenital findings Assessment & Plan: Suprapubic catheter patient states was placed at [place]. Functional without complication Continue to drainage bag DAILY ESTIMATED NEEDS: Needs based on wounds, pulmonary, 104.5kg abw 25-30 kcals/kg 7496-7775 total kcals 1.25-2 g protein/kg 131-209 g total protein 25-30 mL/kg 3852-8254 total fluid mLs NUTRITION DIAGNOSIS: * Increased kcal and pro needs r/t wound care as evidenced by h/o CVA, GT dep, w/ full thickness wounds @ sacrum, lateral L tibia, dorsal L foot, L heel extending into lateral/mid plantar aspect of L foot, R tibia, R lateral Malleolus, and R heel extending well into lateral and distal plantar. CURRENT TF:Glucerna 1.2 @ 60ml/hr x 24 hrs ENTERAL NUTRITION RECOMMENDATIONS: Glucerna 1.5 @ 70ml/hr x24 hrs to provide 1680ml, 2520kcal, 139g prot, 1275ml free water - Rec TF change to Glucerna 1.5 to better meet needs - Initiate Glucerna 1.5 @ 30ml/hr for 6 hrs, advance as tolerated 15ml/hr q4-6 hrs to goal. - Flush per MD, HOB over 30 degrees - Will meet 97% est kcal and 100% est prot needs ADDITIONAL RECOMMENDATIONS: 1) Per SNF: HT 79 inches, WT 260lbs 2) Wound care: add Vit C 500mg BID + ZnSO4 220mg QD x 10 days add Perfecto 1pkt BID via PEG 3) Monitor BGs closely w/ TF, need for additional hypoglycemics -> now w/ improved BGs 4) Monitor lytes, replete as needed (2) UTI (urinary tract infection) Assessment & Plan: Antibiotics per infectious disease Trend labs Thank you (3) Sacral decubitus ulcer, stage IV Assessment & Plan: 23-year-old male presents to [facility] and is admitted for further care and management identified to have decubitus ulcer on admission. States she had with a stage IV sacral decubitus ulcer that does show some signs of resolving and likely present for some time now. The patient' s sacrum and buttock area is near flat and identified to have a divot in the sacral region with scar tissue identified and a 3 cm x 3 cm open area 1 cm deep down to palpable sacrum. It is an abnormal wound which can be potentially consistent with potential debridement prior and closure and considerations for either bone debridement. Wound bed in total approximately 8 cm x 8 cm with scar tissue and healing open area as above. No active drainage. No signs of active acute infection. Patient also identified on admission to have a right ischial decubitus ulcer with palpable bone as well. There is overlying tissue granulation tissue identified and scar tissue showing signs of resolution and likely prior was larger and has received care since. No acute infection no drainage both wounds are clean without signs of active infection. No foul odor. Treatment plan Wash sacral and right ischial wounds daily with normal saline. Apply Thera honey impregnated gauze followed by foam dressing. Skin protectant Turn patient every 2 hours Offload heels with pillow Air mattress Nutritional optimization We will follow with recommendations thank you for let me participate in patient' s care Additional Comments d/c planning cont above care plan upon d/c Rock Reese Jul 19, 2019 17:42
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
== END 2019-07-19 17:30 | DRG 871 ==
LOC: EDUNIT# 02:23 → EDBD 02:23 → EMR 02:38 → 4E 03:27 → EDBEDREQ 04:56 → 4E 09:02
DX: A41.9 Sepsis, unspecified organism (principal); L89.154 Pressure ulcer of sacral region, stage 4; N39.0 Urinary tract infection, site not specified; G82.20 Paraplegia, unspecified; Z88.1 Allergy status to other antibiotic agents; S24.103S Unspecified injury at T7-T10 level of thoracic spinal cord, sequela; W34.00XS Accidental discharge from unspecified firearms or gun, sequela; N31.9 Neuromuscular dysfunction of bladder, unspecified; G62.9 Polyneuropathy, unspecified; Z86.718 Personal history of other venous thrombosis and embolism; Z86.14 Personal history of Methicillin resistant Staphylococcus aureus infection; F32.9 Major depressive disorder, single episode, unspecified
CPT/HCPCS: 36415; 71045; 80048; 80053; 81003; 82550; 82553; 83605; 84484; 85007; 85025; 86710; 87040; 87081; 87086; 87181; 87635; 93005; 96361; 96365; 97803; 99285; J7030

== ENCOUNTER 2020-02-27 22:04 | Inpatient (IN) | payer MEDICARE, MEDICAID ==
[~2020-02-27] VITALS: Ht 182.9 cm; Wt 76.7 kg
[~2020-02-27 22:04] MED LIST changes: +AMITIZA24 MCG ORAL; +BACTRIM DS TAB1 EAC1 ORAL; +BENADRYL ALLERG25 M1 PO; +BENADRYL25 MG ORAL; +BENEFIBER1 EACH ORAL; +CRANBERRY450 M4 PO; +CYMBALTA30 MG ORAL; +DOCUSATE SODIU250 MG ORAL; +DULCOLAX10 MG RC; +HEPARIN SO5000 UNIT2 SUBQ; +IBUPROFEN400 MG ORAL; +IBUPROFEN600 M1 ORAL; +LIDODERM700 M1 TOPIC; +MELATONIN3 MG ORAL; +MILK OF MA2400 MG/10 ORAL; +MINERAL OIL EN133 ML RC; +MIRALAX17 G2 ORAL; +MOTRIN IB200 MG ORAL; +NEURONTIN300 MG ORAL; +NORCO 5-325 TA1 EAC1 ORAL; +OMEPRAZOLE20 M2 ORAL; +PRO-STAT LIQUID30 ML ORAL; +REVATIO20 MG ORAL; +SENNA8.6 M2 PO; +SIMETHICONE80 MG ORAL
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
--- NOTE | 2020-02-27 22:20 | NUR ---
ED Nurse Note: Patient brought in by ambulance from [facility] sent by Dr. Moody due to E. Coli isolated colony count >100,000 and gram negative rajeev isolated colony count >100,000 in urine. Patient is paraplegic and with suprapubic cath to leg bag. Patient has hx of UTI in the past. Patient denies CP/SOB/, fever or chills, N&V. Patient placed on monitor bed
--- NOTE | 2020-02-27 22:21 | NUR ---
ED Nurse Note: ERMD at bedside
[2020-02-27] MEDS ORDERED: DAPTOmycin 500 MG in NS 55 ML IV ONE (22:30)
--- NOTE | 2020-02-27 22:30 | NUR ---
ED Nurse Note: Blood, culture and urine sent to lab
[2020-02-27 22:45] VITALS: BP 132/77
[2020-02-27 23:09] LABS: HEMATOCRIT 46.9 % (42.0-52.0); HEMOGLOBIN 14.8 G/DL (14.2-18.0); LYMPHOCYTES % (AUTO) 48.1 % (20.0-45.0); MEAN CORPUSCULAR VOLUME 83 FL (80-99); PLATELET COUNT 346 K/UL (150-450); RED BLOOD COUNT 5.62 M/UL (4.70-6.10); RED CELL DISTRIBUTION WIDTH 15.3 % (11.6-14.8); WHITE BLOOD COUNT 6.8 K/UL (4.8-10.8)
[2020-02-27 23:20] LABS: APPEARANCE,URINE SLIGHTLY CLOUDY; BILIRUBIN, URINE NEGATIVE (NEGATIVE); COLOR,URINE PALE YELLOW; GLUCOSE, URINE (UA) NEGATIVE (NEGATIVE); KETONES,URINE NEGATIVE (NEGATIVE); LEUKOCYTE ESTERASE ,URINE 3+ (NEGATIVE); NITRITE,URINE POSITIVE (NEGATIVE); PH,URINE 8 (4.5-8.0); PROTEIN,URINE 1+ (NEGATIVE); UROBILINOGEN,URINE NORMAL MG/DL (0.0-1.0)
[2020-02-27 23:24] LABS: ANION GAP 4 mmol/L (5-15); BLOOD UREA NITROGEN 5 mg/dL (7-18); CARBON DIOXIDE 32 MMOL/L (21-32); CHLORIDE 100 MMOL/L (98-107); CREATININE 0.9 MG/DL (0.55-1.30); POTASSIUM 3.4 MMOL/L (3.5-5.1); SODIUM 136 MMOL/L (136-145)
[2020-02-27 23:29] LABS: ALANINE AMINOTRANSFERASE 15 U/L (12-78); ALBUMIN 4.4 G/DL (3.4-5.0); ALKALINE PHOSPHATASE 109 U/L (46-116); ASPARTATE AMINO TRANSFERASE 16 U/L (15-37); BILIRUBIN,TOTAL 0.3 MG/DL (0.2-1.0)
[2020-02-27] MEDS ORDERED: Morphine Sulfate 4mg/ml Inj (IV USE ONLY) ONE (23:39)
[2020-02-27] MEDS ORDERED: VITAMIN C250 MG ORAL (23:43)
[2020-02-27] MEDS ORDERED: Morphine Sulfate 4mg/ml Inj (IV USE ONLY) IVP ONE (23:45)
--- NOTE | 2020-02-28 00:05 | NUR ---
ED Nurse Note: Report given to JENNY RN
--- NOTE | 2020-02-28 00:23 | NUR ---
TRANSFER TO FLOOR: Patient transferred to [facility] rm [id number] via gurney accompanied by MANDO Curry. Belongings checked and given to RN. Patient transferred safely to bed and endorsed to RN
--- NOTE | 2020-02-28 01:00 | NUR ---
NURSE NOTES: Received admission orders from Dr. Moody. All orders executed as indicated.The patient is alert and stable. Will continue to monitor
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
[2020-02-28 04:00] VITALS: BP 127/71
[2020-02-28] MEDS ORDERED: Meropenem 1 GM in NS 55 ML IVPB SCH (06:00)
--- NOTE | 2020-02-28 07:44 | NUR ---
NURSE HAND-OFF: Important Events on Shift:Paraplegic Patient Status: Diet: Pending ] Pending Results/Labs: Pending MD notification: Latest Vital Signs: Temperature 98.1 , Pulse 74 , B/P 127 /71 , Respiratory Rate 17 , O2 SAT 76 , Room Air, O2 Flow Rate . Vital Sign Comment: Latest Lyons Fall Score: 55 Fall Risk: High Risk Safety Measures: Call light Within Reach, Bed Alarm Zone 1, Side Rails Side Rails x2, Bed position . Fall Precautions: Yellow Socks Yellow Gown Door Sign Patient Fall Education Report given to .
--- NOTE | 2020-02-28 07:55 | NUR ---
NURSE NOTES: Received report from KWAME Becker. Patient seen in bed, AAOX4, on room air, and able to make needs known. Patients breathing is even and unlabored with no SOB noted at this time. Patient noted to be paraplegic from waist down, skin issues noted. Patient complaints of pain, will give Guy PRN as ordered. Bed is locked and placed in lowest position. Call light within reach. WIll continue to monitor
[2020-02-28 08:00] VITALS: BP 114/63
[2020-02-28] MEDS: Docusate 250mg cap ORAL SCH ×2 (08:39→17:49)
[2020-02-28] MEDS: Heparin 5000 units/ml inj SUBQ SCH ×2 (08:39→21:00)
[2020-02-28] MEDS: HYDROcodone/Acetamin 5/325 tab ORAL PRN (08:40)
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
--- NOTE | 2020-02-28 11:59 | NUR ---
NURSE NOTES: RN seen Dr. howell during her rounds. Per Dr. Brayan DC meropenem Addendum: 02/28/20 at 1204 by Ravi Kingston RN Dr. Howell also gave RN order to stop Daptomycin
--- NOTE | 2020-02-28 12:45 | History and Physical Report ---
DATE OF ADMISSION: 02/27/2020 TIME SEEN: 02/28/2020 at 10 a.m, CONSULTANTS: Victor Manuel Ordoñez MD CHIEF COMPLAINT: UTI, fever, dysuria, weakness. BRIEF HISTORY: The patient is a 24-year-old male from [facility] presented with one week increased fever, dysuria, weakness, was found to have UTI symptomatic, was sent to [facility], diagnosed with above, admitted to medical floor. Currently, feeling a little bit better, calm in bed, no complaint. No chest pain. No shortness of breath. No nausea, vomiting, or diarrhea. PAST MEDICAL HISTORY: Paraplegia. PAST SURGICAL HISTORY: None. MEDICATIONS: Daptomycin, multivitamin, heparin, gabapentin, baclofen, meropenem, Tylenol. ALLERGIES: Denies. SOCIAL HISTORY: No smoking. No alcohol. No intravenous drug abuse. FAMILY HISTORY: Noncontributory. PHYSICAL EXAMINATION: GENERAL: Calm in bed, oriented x3, no acute distress. VITAL SIGNS: Temperature 97 degrees, pulse 68, respiratory rate 18, blood pressure 114/63. CARDIOVASCULAR: No murmur. LUNGS: Distant and clear. ABDOMEN: Positive bowel sounds. Nontender, nondistended. EXTREMITIES: No cyanosis, clubbing, or edema. NEUROLOGIC: The patient paralyzed below waist. LABORATORY AND DIAGNOSTIC DATA: Labs at this exam show CBC is normal. BMP show potassium 3.4, BUN 5 otherwise normal. Urinalysis show 3+ leukocyte esterase, 1+ blood, 1+ protein. ASSESSMENT: 1. Recurrent UTI. 2. Fever. 3. Dysuria. 4. Weakness. 5. Paraplegia. PLAN: 1. Antibiotics per Infectious Diseases. 2. PT/OT, dietary followup. 3. CBC and BMP in the morning. 4. Resume home medications. Roger Moody D.O. DR: Gunner JOB#: [id number] CC:
[2020-02-28 16:00] VITALS: BP 126/68
--- NOTE | 2020-02-28 16:44 | NUR ---
NURSE NOTES:WOUND ASSESSMENT PATIENT AWAKE ALERT AND ABLE TO REPOSITION SELF. SACRUM-UNSTAGEABLE PRESSURE INJURY MEASURES 0.7X1.0XUTDCM. SCANT SANGUINEOUS DRAINAGE. ISABEL-WOUND WITH NOTED OLD SCARRING. RECOMMEND-CLEAN WITH SALINE, PAT DRY. APPLY THERAHONEY AND COVER WITH OPTIFOAM DRESSING. REPLACE DAILY LEFT BUTTOCK-STAGE II PRESSURE ULCER MEASURES 0.9X0.7X0.2CM SCANT SERO-SANGUINEOUS DRANAGE. ISABEL-WOUND WITH NOTED OLD SCARRING. RECOMMEND- CLEAN WITH SALINE. PAT DRY. APPLY CALAZINE AND COVER WITH OPTIFOAM DRESSING. REPLACE EVERY OTHER DAY OR NEEDED. ALSO RECOMMEND: ORDER LALM MATTRESS OVERLAY REMIND PATIENT TO REPOSITION SELF FREQUENTLY. ELEVATE HEELS WITH PILLOWS.
--- NOTE | 2020-02-28 17:29 | NUR ---
CASE MANAGEMENT:INITIAL REVIEW 24 YR OLD MALE BIBA FROM [facility] CC;ABNORMAL LABS SI;UTI. 98.2 86 18 132/77 98% ON RA K+ 3.4 UA+ PROTEIN, BLOOD, NITRITE, LEUKOCYTE ESTERASE, RBC, WBC, BACTERIA IS;IVF NS BOLUS DAPTOMYCIN IV ONCE MORPHINE IV ADMITTED TO MED SURG [facility]
--- NOTE | 2020-02-28 19:00 | NUR ---
NURSE NOTES: Received report from Ravi PUENTE. Pt. is in bed, awake, alert and verbally responsive. No sob noted. Denies any pain at this time. Had one large bm, kept clean and dry at all time. Wound treatment and dressing done, kept clean and dry at all times. Air loss mattress applied and secured. With bed in it's lowest position, with alarm on and locked. Will continue with plan of care.
--- NOTE | 2020-02-28 19:29 | NUR ---
NURSE HAND-OFF: Important Events on Shift:Abx D/c, wound care done Patient Status: stable Diet: Regular Pending Orders: n/a Pending Results/Labs:n/a Pending MD notification:n/a Latest Vital Signs: Temperature 97.2 , Pulse 75 , B/P 126 /68 , Respiratory Rate 19 , O2 SAT 96 , Room Air, O2 Flow Rate . Vital Sign Comment: stable Latest Lyons Fall Score: 55 Fall Risk: High Risk Safety Measures: Call light Within Reach, Bed Alarm Zone 1, Side Rails Side Rails x2, Bed position Low and Locked. Fall Precautions: Yellow Socks Door Sign Patient Fall Education Report given to KWAME Reese.
[2020-02-28 20:00] VITALS: BP 141/75
[2020-02-29] VITALS: BP 128/71
[2020-02-29] MEDS: HYDROcodone/Acetamin 5/325 tab ORAL PRN ×2 (02:31→12:03)
[2020-02-29 04:00] VITALS: BP 123/61
--- NOTE | 2020-02-29 05:34 | NUR ---
NURSE NOTES: Slept @ short intervals. Able to repositioned self for comfort and circulation. Refused heparin, explained it's risks and benefits but strongly refused, rights respected. Complained of pain, LUQ abdominal pain, due prn meds given and verbalized relief. With SP cath in placed, draining to a tejinder colored urine, free of sediments, no hematuria. Wound treatment and dressing done on sacrum and left lower buttocks sore, kept clean and dry at all times.Will continue with plan of care.
--- NOTE | 2020-02-29 06:57 | NUR ---
NURSE HAND-OFF: Important Events on Shift:[]pain mngt; wound treatment and dressing Patient Status: []stable Diet: []reg. Pending Orders: [] Pending Results/Labs:[]bmp,cbc Pending MD notification:[] Latest Vital Signs: Temperature 97.5 , Pulse 84 , B/P 123 /61 , Respiratory Rate 16 , O2 SAT 98 , Room Air, O2 Flow Rate . Vital Sign Comment: [] Latest Lyons Fall Score: 55 Fall Risk: High Risk Safety Measures: Call light Within Reach, Bed Alarm Zone 1, Side Rails Side Rails x2, Bed position Low and Locked. Fall Precautions: Yellow Socks Door Sign Patient Fall Education Report given to [].Ravi PUENTE
--- NOTE | 2020-02-29 07:18 | NUR ---
NURSE NOTES: Received report from KWAME Reese. Patient seen in bed, AAOX4, on room air, and able to make needs known. Patients breathing is even and unlabored with no SOB noted at this time. Patient noted to be paraplegic from waist down, skin issues noted. Patient on [id number] mattress Patient complaints of pain, will give [place] PRN as ordered. Bed is locked and placed in lowest position. Call light within reach. WIll continue to monitor
[2020-02-29 07:20] LABS: HEMATOCRIT 43.3 % (42.0-52.0); HEMOGLOBIN 13.1 G/DL (14.2-18.0); MEAN CORPUSCULAR VOLUME 87 FL (80-99); PLATELET COUNT 276 K/UL (150-450); RED BLOOD COUNT 4.97 M/UL (4.70-6.10); RED CELL DISTRIBUTION WIDTH 15.2 % (11.6-14.8); WHITE BLOOD COUNT 6.6 K/UL (4.8-10.8)
[2020-02-29 07:29] LABS: ANION GAP 7 mmol/L (5-15); BLOOD UREA NITROGEN 9 mg/dL (7-18); CALCIUM 8.9 MG/DL (8.5-10.1); CARBON DIOXIDE 28 MMOL/L (21-32); CHLORIDE 103 MMOL/L (98-107); CREATININE 0.9 MG/DL (0.55-1.30); SODIUM 138 MMOL/L (136-145)
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
[2020-02-29] MEDS: Docusate 250mg cap ORAL SCH ×2 (08:10→17:13)
[2020-02-29] MEDS: Heparin 5000 units/ml inj SUBQ SCH ×2 (08:12→21:00)
--- NOTE | 2020-02-29 08:21 | NUR ---
NURSE NOTES: Patient refused heparin x3, RN educated patient on risk and benefits of refusing heparin. RN notified primary
--- NOTE | 2020-02-29 10:30 | NUR ---
P.T Note: Pt not a candidate for skilled P.T service as pt is currently at baseline: w/c level. IN P.T.services. Thank you for this referral. Addendum: 02/29/20 at 1030 by ZACHERY MATHEWS PT Amended: Links added.
[2020-02-29 12:00] VITALS: BP 146/90
--- NOTE | 2020-02-29 13:11 | General Progress Note ---
Subjective Constitutional: Reports: weakness Allergies: Coded Allergies: Dust (Verified Allergy, Unknown, skin rash and/or hives, 01/04/18) PIPERACILLIN (Verified Allergy, Unknown, skin rash and/or hives, 01/04/18) TAZOBACTAM (Verified Allergy, Unknown, skin rash and/or hives, 01/04/18) VANCOMYCIN (Verified Allergy, Unknown, skin rash and/or hives, 01/04/18) All Systems: reviewed and negative except above Subjective sl anxious c/o pelvic pain Objective Last 24 Hour Vital Signs Date Time Temp Pulse Resp B/P (MAP) Pulse Ox O2 Delivery O2 Flow Rate FiO2 02/29/20 12:00 97.7 74 20 146/90 (108) 100 02/29/20 09:00 Room Air 02/29/20 04:00 97.5 84 16 123/61 (81) 98 02/29/20 03:01 97.5 02/29/20 00:00 97.9 66 16 128/71 (90) 99 02/28/20 21:00 Room Air 02/28/20 20:00 98.2 67 17 141/75 (97) 100 02/28/20 16:00 97.2 75 19 126/68 (87) 96 Intake and Output 02/28/20 02/29/20 19:00 07:00 Intake Total 480 ml 1000 ml Output Total 800 ml Balance 480 ml 200 ml Intake Oral 480 ml 1000 ml Output Urine Total 800 ml # Bowel Movements 1 Laboratory Tests 02/29/20 06:33: White Blood Count 6.6, Red Blood Count 4.97, Hemoglobin 13.1L, Hematocrit 43.3, Mean Corpuscular Volume 87, Mean Corpuscular Hemoglobin 26.4L, Mean Corpuscular Hemoglobin Concent 30.3L, Red Cell Distribution Width 15.2H, Platelet Count 276, Mean Platelet Volume 7.7, Neutrophils (%) (Auto) , Lymphocytes (%) (Auto) , Monocytes (%) (Auto) , Eosinophils (%) (Auto) , Basophils (%) (Auto) , Differential Total Cells Counted 100, Neutrophils % (Manual) 35L, Lymphocytes % (Manual) 56H, Monocytes % (Manual) 8, Eosinophils % (Manual) 1, Basophils % (Manual) 0, Band Neutrophils 0, Platelet Estimate Adequate, Platelet Morphology Normal, Hypochromasia 1+, Anisocytosis 1+, Sodium Level 138, Potassium Level 4.0, Chloride Level 103, Carbon Dioxide Level 28, Anion Gap 7, Blood Urea Nitrogen 9, Creatinine 0.9, Estimat Glomerular Filtration Rate > 60, Glucose Level 76, Calcium Level 8.9 Height (Feet): 6 Height (Inches): 0.00 Weight (Pounds): 169 General Appearance: alert EENT: normal ENT inspection Neck: normal alignment Cardiovascular: normal peripheral pulses, normal rate, regular rhythm Respiratory/Chest: chest wall non-tender, lungs clear, normal breath sounds Abdomen: normal bowel sounds, non tender, soft Extremities: normal inspection Edema: no edema noted Arm (L), no edema noted Arm (R), no edema noted Leg (L), no edema noted Leg (R), no edema noted Pedal (L), no edema noted Pedal (R), no edema noted Generalized Neurologic: responsive, motor weakness Skin: normal pigmentation, warm/dry Assessment/Plan Problem List: (1) Sepsis ICD Codes: A41.9 - Sepsis, unspecified organism SNOMED: 09860362 (2) Sacral decubitus ulcer, stage IV ICD Codes: L89.154 - Pressure ulcer of sacral region, stage 4 SNOMED: 184487950, 926840217 (3) Paraplegia ICD Codes: G82.20 - Paraplegia, unspecified SNOMED: 35488714 (4) UTI (urinary tract infection) ICD Codes: N39.0 - Urinary tract infection, site not specified SNOMED: 92236185 (5) Abnormal urogenital findings ICD Codes: R89.9 - Unspecified abnormal finding in specimens from other organs, systems and tissues SNOMED: 464807177, 918633408 Status: unchanged Assessment/Plan: abx wound care pain control cbc bmp am uro sx pain id Roger Guerra DatNallely DO Feb 29, 2020 13:11
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
[2020-02-29 16:00] VITALS: BP 131/91
--- NOTE | 2020-02-29 19:34 | NUR ---
NURSE HAND-OFF: Important Events on Shift: teste Patient Status: stable Diet: regular Pending Orders: n/a Pending Results/Labs:Ultra sound test Pending MD notification:n/a Latest Vital Signs: Temperature 97.7 , Pulse 66 , B/P 131 /91 , Respiratory Rate 20 , O2 SAT 100 , Room Air, O2 Flow Rate . Vital Sign Comment: stable Latest Lyons Fall Score: 55 Fall Risk: High Risk Safety Measures: Call light Within Reach, Bed Alarm Zone 1, Side Rails Side Rails x2, Bed position Low and Locked. Fall Precautions: Yellow Socks Door Sign Patient Fall Education Report given to KWAME Malagon.
--- NOTE | 2020-02-29 19:35 | NUR ---
NURSE NOTES: received report from aleah fleming. patient on bed, awake. on room air. no sob. with iv line on the right ac, saline lock. noted with suprapubic catheter connected to urine bad, draining well. per bernadette" he just administered dulcolax before change of shift. reiterated to call and ask for assistance to prevent fall or injury. call light and light button within easy reach. bed locked and in lowest position. bed alarm on. will continue plan of care.
[2020-02-29 20:00] VITALS: BP 122/72
--- NOTE | 2020-02-29 20:30 | NUR ---
NURSE NOTES: had bowel movement; cleaned pt; changed the beddings.wound dressing changed. kept clean and dry.
[2020-02-29] MEDS ORDERED: DAPTOmycin 500 MG in NS 55 ML IV SCH (22:00)
[2020-03-01] VITALS: BP 112/60
--- NOTE | 2020-03-01 06:28 | NUR ---
NURSE HAND-OFF: Important Events on Shift:had bmx1; wound dressing changed; Patient Status: stable Diet: regular diet Pending Orders: Pending Results/Labs: Pending MD notification: Latest Vital Signs: Temperature 96.8 , Pulse 77 , B/P 112 /60 , Respiratory Rate 20 , O2 SAT 100 , Room Air, O2 Flow Rate . Vital Sign Comment: Latest Lyons Fall Score: 55 Fall Risk: High Risk Safety Measures: Call light Within Reach, Bed Alarm Zone 1, Side Rails Side Rails x2, Bed position Low and Locked. Fall Precautions: Yellow Socks Door Sign Patient Fall Education Addendum: 03/01/20 at 0724 by Nemo Luther RN HAND-OFF: Report given to aleah fleming.
--- NOTE | 2020-03-01 07:25 | NUR ---
NURSE NOTES: Received report from KWAME Reese. Patient seen in bed, AAOX4, on room air, and able to make needs known. Patients breathing is even and unlabored with no SOB noted at this time. Patient noted to be paraplegic from waist down, skin issues noted. Patient on P200 mattress. Patient complaints of pain, will give [place] PRN as ordered. Bed is locked and placed in lowest position. Call light within reach. WIll continue to monitor
[2020-03-01 07:29] LABS: EOSINOPHILS % (AUTO) 1.1 % (0.0-3.0); HEMATOCRIT 48.5 % (42.0-52.0); HEMOGLOBIN 14.6 G/DL (14.2-18.0); LYMPHOCYTES % (AUTO) 44.8 % (20.0-45.0); MEAN CORPUSCULAR VOLUME 88 FL (80-99); MONOCYTES % (AUTO) 7.3 % (1.0-10.0); NEUTROPHILS % (AUTO) 44.7 % (45.0-75.0); PLATELET COUNT 302 K/UL (150-450); RED BLOOD COUNT 5.53 M/UL (4.70-6.10); RED CELL DISTRIBUTION WIDTH 15.1 % (11.6-14.8); WHITE BLOOD COUNT 5.4 K/UL (4.8-10.8)
[2020-03-01 07:37] LABS: ANION GAP 8 mmol/L (5-15); BLOOD UREA NITROGEN 10 mg/dL (7-18); CALCIUM 9.5 MG/DL (8.5-10.1); CARBON DIOXIDE 30 MMOL/L (21-32); CHLORIDE 102 MMOL/L (98-107); POTASSIUM 4.3 MMOL/L (3.5-5.1); SODIUM 139 MMOL/L (136-145)
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
[2020-03-01] MEDS: Docusate 250mg cap ORAL SCH ×2 (08:16→17:50)
[2020-03-01] MEDS: Heparin 5000 units/ml inj SUBQ SCH ×2 (08:17→21:00)
--- NOTE | 2020-03-01 09:20 | NUR ---
NURSE NOTES: Patient continues to refuse heparin. RN discussed risk and benefits of refusing said medication. RN made Dr. Moody aware when seen during his round
--- NOTE | 2020-03-01 10:51 | General Progress Note ---
Subjective Constitutional: Reports: weakness Allergies: Coded Allergies: Dust (Verified Allergy, Unknown, skin rash and/or hives, 01/04/18) PIPERACILLIN (Verified Allergy, Unknown, skin rash and/or hives, 01/04/18) TAZOBACTAM (Verified Allergy, Unknown, skin rash and/or hives, 01/04/18) VANCOMYCIN (Verified Allergy, Unknown, skin rash and/or hives, 01/04/18) All Systems: reviewed and negative except above Subjective sl anxious c/o pelvic pain Objective Last 24 Hour Vital Signs Date Time Temp Pulse Resp B/P (MAP) Pulse Ox O2 Delivery O2 Flow Rate FiO2 03/01/20 09:00 Room Air 03/01/20 00:00 96.8 77 20 112/60 (77) 100 02/29/20 21:00 Room Air 02/29/20 20:00 97.5 70 20 122/72 (89) 100 02/29/20 16:00 97.7 66 20 131/91 (104) 100 02/29/20 12:00 97.7 74 20 146/90 (108) 100 Intake and Output 0 02/29/20 03/01/20 18:59 06:59 Intake Total 400 ml 500 ml Output Total 400 ml 1100 ml Balance 0 ml -600 ml Intake Oral 400 ml 500 ml Output Urine Total 400 ml 1100 ml # Voids 1 Laboratory Tests 03/01/20 07:00: White Blood Count 5.4, Red Blood Count 5.53, Hemoglobin 14.6, Hematocrit 48.5, Mean Corpuscular Volume 88, Mean Corpuscular Hemoglobin 26.4L, Mean Corpuscular Hemoglobin Concent 30.1L, Red Cell Distribution Width 15.1H, Platelet Count 302, Mean Platelet Volume 8.0, Neutrophils (%) (Auto) 44.7L, Lymphocytes (%) (Auto) 44.8, Monocytes (%) (Auto) 7.3, Eosinophils (%) (Auto) 1.1, Basophils (%) (Auto) 2.0, Sodium Level 139, Potassium Level 4.3, Chloride Level 102, Carbon Dioxide Level 30, Anion Gap 8, Blood Urea Nitrogen 10, Creatinine 1.0, Estimat Glomerular Filtration Rate > 60, Glucose Level 77, Calcium Level 9.5 Height (Feet): 6 Height (Inches): 0.00 Weight (Pounds): 169 General Appearance: alert EENT: normal ENT inspection Neck: normal alignment Cardiovascular: normal peripheral pulses, normal rate, regular rhythm Respiratory/Chest: chest wall non-tender, lungs clear, normal breath sounds Abdomen: normal bowel sounds, non tender, soft Extremities: normal inspection Edema: no edema noted Arm (L), no edema noted Arm (R), no edema noted Leg (L), no edema noted Leg (R), no edema noted Pedal (L), no edema noted Pedal (R), no edema noted Generalized Neurologic: motor weakness Skin: normal pigmentation, warm/dry Assessment/Plan Problem List: (1) Sepsis ICD Codes: A41.9 - Sepsis, unspecified organism SNOMED: 77431918 (2) Sacral decubitus ulcer, stage IV ICD Codes: L89.154 - Pressure ulcer of sacral region, stage 4 SNOMED: 421771104, 903274251 (3) Paraplegia ICD Codes: G82.20 - Paraplegia, unspecified SNOMED: 85737781 (4) UTI (urinary tract infection) ICD Codes: N39.0 - Urinary tract infection, site not specified SNOMED: 04356602 (5) Abnormal urogenital findings ICD Codes: R89.9 - Unspecified abnormal finding in specimens from other organs, systems and tissues SNOMED: 312512242, 181221071 Status: unchanged Assessment/Plan: abx wound care pain control cbc bmp am uro sx pain id adan Roger Moody DO Mar 01, 2020 10:51
[2020-03-01 12:00] VITALS: BP 125/60
--- NOTE | 2020-03-01 13:47 | Surgery Progress Note ---
Surgery Progress Note Subjective Additional Comments suprapubic changed comfortable no n/v Objective Last 24 Hour Vital Signs Date Time Temp Pulse Resp B/P (MAP) Pulse Ox O2 Delivery O2 Flow Rate FiO2 03/01/20 12:00 97.2 83 20 125/60 (81) 100 03/01/20 09:00 Room Air 03/01/20 00:00 96.8 77 20 112/60 (77) 100 02/29/20 21:00 Room Air 02/29/20 20:00 97.5 70 20 122/72 (89) 100 02/29/20 16:00 97.7 66 20 131/91 (104) 100 I&O Intake and Output 02/29/20 03/01/20 19:00 07:00 Intake Total 400 ml 500 ml Output Total 400 ml 1100 ml Balance 0 ml -600 ml Intake Oral 400 ml 500 ml Output Urine Total 400 ml 1100 ml # Voids 1 Dressing: saturated Cardiovascular: RSR Respiratory: decreased breath sounds Abdomen: soft, present bowel sounds Extremities: no tenderness, no cyanosis Laboratory Tests Test 03/01/20 07:00 White Blood Count 5.4 K/UL (4.8-10.8) Red Blood Count 5.53 M/UL (4.70-6.10) Hemoglobin 14.6 G/DL (14.2-18.0) Hematocrit 48.5 % (42.0-52.0) Mean Corpuscular Volume 88 FL (80-99) Mean Corpuscular Hemoglobin 26.4 PG (27.0-31.0) L Mean Corpuscular Hemoglobin Concent 30.1 G/DL (32.0-36.0) L Red Cell Distribution Width 15.1 % (11.6-14.8) H Platelet Count 302 K/UL (150-450) Mean Platelet Volume 8.0 FL (6.5-10.1) Neutrophils (%) (Auto) 44.7 % (45.0-75.0) L Lymphocytes (%) (Auto) 44.8 % (20.0-45.0) Monocytes (%) (Auto) 7.3 % (1.0-10.0) Eosinophils (%) (Auto) 1.1 % (0.0-3.0) Basophils (%) (Auto) 2.0 % (0.0-2.0) Sodium Level 139 MMOL/L (136-145) Potassium Level 4.3 MMOL/L (3.5-5.1) Chloride Level 102 MMOL/L (98-107) Carbon Dioxide Level 30 MMOL/L (21-32) Anion Gap 8 mmol/L (5-15) Blood Urea Nitrogen 10 mg/dL (7-18) Creatinine 1.0 MG/DL (0.55-1.30) Estimat Glomerular Filtration Rate > 60 mL/min (>60) Glucose Level 77 MG/DL (74-106) Calcium Level 9.5 MG/DL (8.5-10.1) Plan Problems: (1) Paraplegia (2) Sepsis (3) UTI (urinary tract infection) (4) Abnormal urogenital findings Assessment & Plan: suprapubic cath frequent uti extensive history recommend cath change will discuss with urology given complexity of history thank you crews changed (5) Sacral decubitus ulcer, stage IV Assessment & Plan: 23-year-old male presents to [facility] and is admitted for further care and management identified to have decubitus ulcer on admission. States had with a stage IV sacral decubitus ulcer that does show some signs of resolving and likely present for some time now. SACRUM-UNSTAGEABLE PRESSURE INJ URY MEASURES 0.7X1.0XUTDCM. SCANT SANGUINEOUS DRAINAGE. ISABEL-WOUND WITH NOTED OLD SCARRING. The patient's sacrum and buttock area is near flat and identified to have a divot in the sacral region with scar tissue identified. It is an abnormal wound which can be potentially consistent with potential debridement prior and closure and considerations for either bone debridement. Wound bed in total approximately 8 cm x 8 cm with scar tissue and healing open area as above. No active drainage. No signs of active acute infection. Patient also identified on admission to have a right ischial decubitus ulcer with palpable bone as well. LEFT BUTTOCK-STAGE II PRESSURE ULCER MEASURES 0.9X0.7X0.2CM SCANT SERO-SANGUINEOUS DRANAGE. ISABEL-WOUND WITH NOTED OLD SCARRING. There is overlying tissue granulation tissue identified and scar tissue showing signs of resolution and likely prior was larger and has received care since. No acute infection no drainage both wounds are clean without signs of active infection. No foul odor. Treatment plan Wash sacral and right ischial wounds daily with normal saline. Apply Thera honey impregnated gauze followed by foam dressing. Skin protectant Turn patient every 2 hours Offload heels with pillow Air mattress Nutritional optimization We will follow with recommendations thank you for let me participate in patient's care Rock Reese Mar 01, 2020 13:47
--- NOTE | 2020-03-01 14:41 | NUR ---
NURSE NOTES: Rn and Charge nurse unable to restart IV. Patient has 2Pm ABx medication due, but unable to give. Vein finder unable to locate
[2020-03-01] MEDS: Meropenem 1 GM in NS 55 ML IVPB SCH ×2 (16:51→21:26)
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
[2020-03-01] MEDS: Morphine Sulfate 2mg/ml Inj(IV/IM USE ONLY) IVP PRN (17:51)
--- NOTE | 2020-03-01 19:30 | NUR ---
NURSE NOTES: received report from aleah fleming. patient on bed, awake. on room air. no sob. with iv line on the left hand 20g.saline lock, saline lock. per bernadette, " dr. marie changed the suprapubic catheter today and connected to urine bag, draining well." denies any pain or discomfort. reiterated to call and ask for assistance to prevent fall or injury. call light and light button within easy reach. bed locked and in lowest position. bed alarm on. will continue plan of care.
--- NOTE | 2020-03-01 19:32 | NUR ---
NURSE HAND-OFF: Important Events on Shift:suprapubic catheter changed, back on abx Patient Status: stable Diet: regular Pending Orders: n/a Pending Results/Labs:n/a Pending MD notification:n/a Latest Vital Signs: Temperature 97.2 , Pulse 83 , B/P 125 /60 , Respiratory Rate 20 , O2 SAT 100 , Room Air, O2 Flow Rate . Vital Sign Comment: stable Latest Lyons Fall Score: 55 Fall Risk: High Risk Safety Measures: Call light Within Reach, Bed Alarm Zone 1, Side Rails Side Rails x2, Bed position Low and Locked. Fall Precautions: Yellow Socks Door Sign Patient Fall Education Report given to KWAME Malagon.
[2020-03-01 20:00] VITALS: BP 126/75
--- NOTE | 2020-03-01 20:23 | NUR ---
NURSE NOTES: DULCOLAX GIVEN PER PT'S REQUEST.
[2020-03-02] VITALS: BP 135/87
[2020-03-02] MEDS: Meropenem 1 GM in NS 55 ML IVPB SCH ×3 (05:12→22:00)
--- NOTE | 2020-03-02 06:22 | NUR ---
NURSE HAND-OFF: Important Events on Shift: BM YESTERDAY;WOUND DRESSING CHANGED Patient Status: STABLE Diet: rEGULAR Pending Orders: Pending Results/Labs: Pending MD notification: Latest Vital Signs: Temperature 97.7 , Pulse 71 , B/P 135 /87 , Respiratory Rate 16 , O2 SAT 98 , Room Air, O2 Flow Rate . Vital Sign Comment: Latest Lyons Fall Score: 55 Fall Risk: High Risk Safety Measures: Call light Within Reach, Bed Alarm Zone 1, Side Rails Side Rails x2, Bed position Low and Locked. Fall Precautions: Yellow Socks Door Sign Patient Fall Education Addendum: 03/02/20 at 0717 by Nemo Luther RN HAND-OFF: Report given to aleah stephenson.
[2020-03-02 07:26] LABS: BASOPHILS % (AUTO) 2.3 % (0.0-2.0); EOSINOPHILS % (AUTO) 1.4 % (0.0-3.0); HEMATOCRIT 42.6 % (42.0-52.0); HEMOGLOBIN 13.8 G/DL (14.2-18.0); LYMPHOCYTES % (AUTO) 50.6 % (20.0-45.0); MEAN CORPUSCULAR VOLUME 82 FL (80-99); MONOCYTES % (AUTO) 10.5 % (1.0-10.0); NEUTROPHILS % (AUTO) 35.2 % (45.0-75.0); PLATELET COUNT 296 K/UL (150-450); RED BLOOD COUNT 5.18 M/UL (4.70-6.10); RED CELL DISTRIBUTION WIDTH 15.5 % (11.6-14.8); WHITE BLOOD COUNT 6.4 K/UL (4.8-10.8)
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
[2020-03-02 07:48] LABS: ANION GAP 9 mmol/L (5-15); BLOOD UREA NITROGEN 12 mg/dL (7-18); CARBON DIOXIDE 28 MMOL/L (21-32); CHLORIDE 103 MMOL/L (98-107); CREATININE 0.9 MG/DL (0.55-1.30); SODIUM 140 MMOL/L (136-145)
[2020-03-02] MEDS: Heparin 5000 units/ml inj SUBQ SCH ×2 (09:47→20:57)
[2020-03-02] MEDS: Docusate 250mg cap ORAL SCH ×2 (09:48→17:26)
[2020-03-02 12:00] VITALS: BP 123/75
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
--- NOTE | 2020-03-02 12:49 | General Progress Note ---
Subjective Constitutional: Reports: weakness Allergies: Coded Allergies: Dust (Verified Allergy, Unknown, skin rash and/or hives, 01/04/18) PIPERACILLIN (Verified Allergy, Unknown, skin rash and/or hives, 01/04/18) TAZOBACTAM (Verified Allergy, Unknown, skin rash and/or hives, 01/04/18) VANCOMYCIN (Verified Allergy, Unknown, skin rash and/or hives, 01/04/18) All Systems: reviewed and negative except above Subjective calm in bed Objective Last 24 Hour Vital Signs Date Time Temp Pulse Resp B/P (MAP) Pulse Ox O2 Delivery O2 Flow Rate FiO2 03/02/20 09:00 Room Air 03/02/20 00:00 97.7 71 16 135/87 (103) 98 03/01/20 21:00 Room Air 03/01/20 20:00 97.6 85 20 126/75 (92) 98 03/01/20 16:01 Room Air Intake and Output 03/01/20 03/02/20 19:00 07:00 Intake Total 720 ml 450 ml Output Total 600 ml 650 ml Balance 120 ml -200 ml Intake Oral 720 ml 450 ml Output Urine Total 600 ml 650 ml Laboratory Tests 03/02/20 06:29: White Blood Count 6.4, Red Blood Count 5.18, Hemoglobin 13.8L, Hematocrit 42.6, Mean Corpuscular Volume 82, Mean Corpuscular Hemoglobin 26.7L, Mean Corpuscular Hemoglobin Concent 32.5, Red Cell Distribution Width 15.5H, Platelet Count 296, Mean Platelet Volume 8.3, Neutrophils (%) (Auto) 35.2L, Lymphocytes (%) (Auto) 50.6H, Monocytes (%) (Auto) 10.5H, Eosinophils (%) (Auto) 1.4, Basophils (%) (Auto) 2.3H, Sodium Level 140, Potassium Level 4.0, Chloride Level 103, Carbon Dioxide Level 28, Anion Gap 9, Blood Urea Nitrogen 12, Creatinine 0.9, Estimat Glomerular Filtration Rate > 60, Glucose Level 81, Calcium Level 9.0 Height (Feet): 6 Height (Inches): 0.00 Weight (Pounds): 169 General Appearance: alert EENT: normal ENT inspection Neck: normal alignment Cardiovascular: normal peripheral pulses, normal rate, regular rhythm Respiratory/Chest: chest wall non-tender, lungs clear, normal breath sounds Abdomen: normal bowel sounds, non tender, soft Extremities: normal inspection Edema: no edema noted Arm (L), no edema noted Arm (R), no edema noted Leg (L), no edema noted Leg (R), no edema noted Pedal (L), no edema noted Pedal (R), no edema noted Generalized Neurologic: responsive, motor weakness Skin: normal pigmentation, warm/dry Assessment/Plan Problem List: (1) Sepsis ICD Codes: A41.9 - Sepsis, unspecified organism SNOMED: 42126899 (2) Sacral decubitus ulcer, stage IV ICD Codes: L89.154 - Pressure ulcer of sacral region, stage 4 SNOMED: 293864482, 683775699 (3) Paraplegia ICD Codes: G82.20 - Paraplegia, unspecified SNOMED: 05058082 (4) UTI (urinary tract infection) ICD Codes: N39.0 - Urinary tract infection, site not specified SNOMED: 05158303 (5) Abnormal urogenital findings ICD Codes: R89.9 - Unspecified abnormal finding in specimens from other organs, systems and tissues SNOMED: 728596161, 971966301 Status: unchanged Assessment/Plan: abx wound care pain control cbc bmp am uro sx pain id Roger Guerra DO Mar 02, 2020 12:49
--- NOTE | 2020-03-02 13:09 | Surgery Progress Note ---
Surgery Progress Note Subjective Symptoms: improved, tolerating diet, voiding well, passing flatus Objective Last 24 Hour Vital Signs Date Time Temp Pulse Resp B/P (MAP) Pulse Ox O2 Delivery O2 Flow Rate FiO2 03/02/20 12:00 98.1 114 16 123/75 (91) 100 03/02/20 09:00 Room Air 03/02/20 00:00 97.7 71 16 135/87 (103) 98 03/01/20 21:00 Room Air 03/01/20 20:00 97.6 85 20 126/75 (92) 98 03/01/20 16:01 Room Air I&O Intake and Output 03/01/20 03/02/20 19:00 07:00 Intake Total 720 ml 450 ml Output Total 600 ml 650 ml Balance 120 ml -200 ml Intake Oral 720 ml 450 ml Output Urine Total 600 ml 650 ml Dressing: saturated Cardiovascular: RSR Respiratory: decreased breath sounds Abdomen: soft, non-tender, present bowel sounds Extremities: no cyanosis Laboratory Tests Test 03/02/20 06:29 White Blood Count 6.4 K/UL (4.8-10.8) Red Blood Count 5.18 M/UL (4.70-6.10) Hemoglobin 13.8 G/DL (14.2-18.0) L Hematocrit 42.6 % (42.0-52.0) Mean Corpuscular Volume 82 FL (80-99) Mean Corpuscular Hemoglobin 26.7 PG (27.0-31.0) L Mean Corpuscular Hemoglobin Concent 32.5 G/DL (32.0-36.0) Red Cell Distribution Width 15.5 % (11.6-14.8) H Platelet Count 296 K/UL (150-450) Mean Platelet Volume 8.3 FL (6.5-10.1) Neutrophils (%) (Auto) 35.2 % (45.0-75.0) L Lymphocytes (%) (Auto) 50.6 % (20.0-45.0) H Monocytes (%) (Auto) 10.5 % (1.0-10.0) H Eosinophils (%) (Auto) 1.4 % (0.0-3.0) Basophils (%) (Auto) 2.3 % (0.0-2.0) H Sodium Level 140 MMOL/L (136-145) Potassium Level 4.0 MMOL/L (3.5-5.1) Chloride Level 103 MMOL/L (98-107) Carbon Dioxide Level 28 MMOL/L (21-32) Anion Gap 9 mmol/L (5-15) Blood Urea Nitrogen 12 mg/dL (7-18) Creatinine 0.9 MG/DL (0.55-1.30) Estimat Glomerular Filtration Rate > 60 mL/min (>60) Glucose Level 81 MG/DL (74-106) Calcium Level 9.0 MG/DL (8.5-10.1) Plan Problems: (1) Paraplegia (2) Sepsis (3) UTI (urinary tract infection) (4) Abnormal urogenital findings Assessment & Plan: suprapubic cath frequent uti extensive history recommend cath change will discuss with urology given complexity of history thank you crews changed (5) Sacral decubitus ulcer, stage IV Assessment & Plan: 23-year-old male presents to [facility] and is admitted for further care and management identified to have decubitus ulcer on admission. States had with a stage IV sacral decubitus ulcer that does show some signs of resolving and likely present for some time now. SACRUM-UNSTAGEABLE PRESSURE INJURY MEASURES 0.7X1.0XUTDCM. SCANT SANGUINEOUS DRAINAGE. ISABEL-WOUND WITH NOTED OLD SCARRING. The patient's sacrum and buttock area is near flat and identified to have a divot in the sacral region with scar tissue identified. It is an abnormal wound which can be potentially consistent with potential debridement prior and closure and considerations for either bone debridement. Wound bed in total approximately 8 cm x 8 cm with scar tissue and healing open area as above. No active drainage. No signs of active acute infection. Patient also identified on admission to have a right ischial decubitus ulcer with palpable bone as well. LEFT BUTTOCK-STAGE II PRESSURE ULCER MEASURES 0.9X0.7X0.2CM SCANT SERO-SANGUINEOUS DRANAGE. ISABEL-WOUND WITH NOTED OLD SCARRING. There is overlying tissue granulation tissue identified and scar tissue showing signs of resolution and likely prior was larger and has received care since. No acute infection no drainage both wounds are clean without signs of active infection. No foul odor. Treatment plan Wash sacral and right ischial wounds daily with normal saline. Apply Thera honey impregnated gauze followed by foam dressing. Skin protectant Turn patient every 2 hours Offload heels with pillow Air mattress Nutritional optimization We will follow with recommendations thank you for let me participate in patient's care Rock Reese Mar 02, 2020 13:09
--- NOTE | 2020-03-02 13:45 | NUR ---
Hand off report given to KWAME Corona.
--- NOTE | 2020-03-02 14:00 | NUR ---
NURSE NOTES: Received patient from Genaro RN. patient in stable condition. Will continue to monitor.
--- NOTE | 2020-03-02 14:30 | Diagnostic Imaging Report ---
EXAM: US Scrotum CLINICAL HISTORY: PAIN TECHNIQUE: Real-time ultrasound of the scrotum with color Doppler and image documentation. COMPARISON: No relevant prior studies available. FINDINGS: Right testicle: 4 x 1 mm hypoechoic lesion at the periphery of the right testicle (image 9/60). Right testicle measures 4.2 x 2.3 x 1.8 cm. Patent Doppler flow. No visible masses or microcalcifications. Mildly heterogeneous echotexture. Left testicle: Left testicle measures 3.9 x 2.7 x 1.7 cm. Patent Doppler flow. No visible masses or microcalcifications. Mildly heterogeneous echotexture. Epididymides: 3 mm right epididymal head cyst. Scrotum: Unremarkable. No visible hydrocele or varicocele. No scrotal wall thickening. IMPRESSION: 1. 4 x 1 mm hypoechoic lesion at the periphery of the right testicle (image 9/60). This remains indeterminate and may represent a small cyst or hypoechoic mass. 2. Patent Doppler flow seen to both testicles. 3. Nonspecific patchy heterogeneous echotexture in both testicles, which may be post inflammatory. 4. 3 mm right epididymal head cyst.
[2020-03-02 16:00] VITALS: BP 114/65
--- NOTE | 2020-03-02 19:30 | NUR ---
NURSE HAND-OFF: Important Events on Shift:[] Patient Status: Stable Diet: Regular Pending Orders: N/A Pending Results/Labs: CBC, BMP on 03/03 Pending MD notification:N/A Latest Vital Signs: Temperature 97.0 , Pulse 89 , B/P 114 /65 , Respiratory Rate 20 , O2 SAT 99 , Room Air, O2 Flow Rate . Vital Sign Comment: Stable Latest Lyons Fall Score: 55 Fall Risk: High Risk Safety Measures: Call light Within Reach, Bed Alarm Zone 1, Side Rails Side Rails x2, Bed position Low and Locked. Fall Precautions: Yellow Socks Door Sign Patient Fall Education Report given to Renay PUENTE. Patient in stable condition.
[2020-03-02 20:00] VITALS: BP 120/73
[2020-03-03] VITALS: BP 107/69
[2020-03-03] MEDS: Meropenem 1 GM in NS 55 ML IVPB SCH ×3 (06:17→20:39)
[2020-03-03 06:50] LABS: BASOPHILS % (AUTO) 2.3 % (0.0-2.0); EOSINOPHILS % (AUTO) 1.6 % (0.0-3.0); HEMATOCRIT 46.1 % (42.0-52.0); HEMOGLOBIN 14.1 G/DL (14.2-18.0); LYMPHOCYTES % (AUTO) 48.8 % (20.0-45.0); MEAN CORPUSCULAR VOLUME 87 FL (80-99); MONOCYTES % (AUTO) 8.3 % (1.0-10.0); NEUTROPHILS % (AUTO) 39.1 % (45.0-75.0); PLATELET COUNT 276 K/UL (150-450); RED BLOOD COUNT 5.29 M/UL (4.70-6.10); RED CELL DISTRIBUTION WIDTH 14.6 % (11.6-14.8); WHITE BLOOD COUNT 7.2 K/UL (4.8-10.8)
[2020-03-03 07:13] LABS: ANION GAP 5 mmol/L (5-15); BLOOD UREA NITROGEN 11 mg/dL (7-18); CALCIUM 9.3 MG/DL (8.5-10.1); CARBON DIOXIDE 32 MMOL/L (21-32); CHLORIDE 101 MMOL/L (98-107); CREATININE 0.9 MG/DL (0.55-1.30); POTASSIUM 3.8 MMOL/L (3.5-5.1); SODIUM 138 MMOL/L (136-145)
--- NOTE | 2020-03-03 07:30 | NUR ---
NURSE HAND-OFF: Important Events on Shift:[UNEVENTFUL NIGHT] Patient Status: [STABLE, AFEBRILE] Diet: [REGULAR] Pending Orders: [AM LABS] Pending Results/Labs:[] Pending MD notification:[] Latest Vital Signs: Temperature 97.8 , Pulse 85 , B/P 107 /69 , Respiratory Rate 18 , O2 SAT 97 , Room Air, O2 Flow Rate . Vital Sign Comment: [STABLE, AFEBRILE] Latest Lyons Fall Score: 55 Fall Risk: High Risk Safety Measures: Call light Within Reach, Bed Alarm Zone 1, Side Rails Side Rails x2, Bed position Low and Locked. Fall Precautions: Yellow Socks Door Sign Patient Fall Education Report given to [ARICRN].
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
--- NOTE | 2020-03-03 08:52 | General Progress Note ---
Subjective Constitutional: Reports: weakness Allergies: Coded Allergies: Dust (Verified Allergy, Unknown, skin rash and/or hives, 01/04/18) PIPERACILLIN (Verified Allergy, Unknown, skin rash and/or hives, 01/04/18) TAZOBACTAM (Verified Allergy, Unknown, skin rash and/or hives, 01/04/18) VANCOMYCIN (Verified Allergy, Unknown, skin rash and/or hives, 01/04/18) All Systems: reviewed and negative except above Subjective calm sleepy in bed Objective Last 24 Hour Vital Signs Date Time Temp Pulse Resp B/P (MAP) Pulse Ox O2 Delivery O2 Flow Rate FiO2 03/03/20 00:00 97.8 85 18 107/69 (82) 97 03/02/20 21:00 Room Air 03/02/20 20:00 97.8 81 18 120/73 (89) 100 03/02/20 16:00 97.0 89 20 114/65 (81) 99 03/02/20 12:00 98.1 114 16 123/75 (91) 100 03/02/20 09:00 Room Air Intake and Output 03/02/20 03/03/20 19:00 07:00 Intake Total 400 ml 415 ml Output Total 600 ml 500 ml Balance -200 ml -85 ml Intake Oral 400 ml 360 ml IV Total 55 ml Output Urine Total 600 ml 500 ml # Bowel Movements 1 Laboratory Tests 03/03/20 06:18: White Blood Count 7.2, Red Blood Count 5.29, Hemoglobin 14.1L, Hematocrit 46.1, Mean Corpuscular Volume 87, Mean Corpuscular Hemoglobin 26.6L, Mean Corpuscular Hemoglobin Concent 30.5L, Red Cell Distribution Width 14.6, Platelet Count 276, Mean Platelet Volume 7.2, Neutrophils (%) (Auto) 39.1L, Lymphocytes (%) (Auto) 48.8H, Monocytes (%) (Auto) 8.3, Eosinophils (%) (Auto) 1.6, Basophils (%) (Auto) 2.3H, Sodium Level 138, Potassium Level 3.8, Chloride Level 101, Carbon Dioxide Level 32, Anion Gap 5, Blood Urea Nitrogen 11, Creatinine 0.9, Estimat Glomerular Filtration Rate > 60, Glucose Level 76, Calcium Level 9.3 Height (Feet): 6 Height (Inches): 0.00 Weight (Pounds): 169 General Appearance: lethargic EENT: normal ENT inspection Neck: normal alignment Cardiovascular: normal peripheral pulses, normal rate, regular rhythm Respiratory/Chest: chest wall non-tender, lungs clear, normal breath sounds Abdomen: normal bowel sounds, non tender, soft Extremities: normal inspection Edema: no edema noted Arm (L), no edema noted Arm (R), no edema noted Leg (L), no edema noted Leg (R), no edema noted Pedal (L), no edema noted Pedal (R), no edema noted Generalized Neurologic: motor weakness Skin: normal pigmentation, warm/dry Assessment/Plan Problem List: (1) Sepsis ICD Codes: A41.9 - Sepsis, unspecified organism SNOMED: 76116608 (2) Sacral decubitus ulcer, stage IV ICD Codes: L89.154 - Pressure ulcer of sacral region, stage 4 SNOMED: 496335460, 255509757 (3) Paraplegia ICD Codes: G82.20 - Paraplegia, unspecified SNOMED: 38760221 (4) UTI (urinary tract infection) ICD Codes: N39.0 - Urinary tract infection, site not specified SNOMED: 55845112 (5) Abnormal urogenital findings ICD Codes: R89.9 - Unspecified abnormal finding in specimens from other organs, systems and tissues SNOMED: 513628268, [id number] Status: unchanged Assessment/Plan: abx wound care pain control cbc bmp am uro sx pain id Roger Guerra DatNallely Mar 03, 2020 08:52
[2020-03-03] MEDS: Heparin 5000 units/ml inj SUBQ SCH ×2 (09:00→20:39)
--- NOTE | 2020-03-03 10:12 | NUR ---
NURSE NOTES: received patient in bed, awake. on room air. no sign of distress, hep lock patent, suprapubic catheter connected to urine bag, draining well." denies any pain or discomfort. reiterated to call and ask for assistance to prevent fall or injury. call light and light button within easy reach. bed locked and in lowest position. bed alarm on. will continue plan of care. aleah chatman
[2020-03-03] MEDS: Docusate 250mg cap ORAL SCH ×2 (11:03→17:28)
[2020-03-03 11:59] VITALS: BP 123/84
[2020-03-03] MEDS: Morphine Sulfate 2mg/ml Inj(IV/IM USE ONLY) IVP PRN (13:59)
[2020-03-03 16:00] VITALS: BP 113/66
--- NOTE | 2020-03-03 16:44 | Surgery Progress Note ---
Surgery Progress Note Subjective Symptoms: improved, tolerating diet, voiding well, passing flatus, BM Objective Last 24 Hour Vital Signs Date Time Temp Pulse Resp B/P (MAP) Pulse Ox O2 Delivery O2 Flow Rate FiO2 03/03/20 16:00 97.9 91 17 113/66 (82) 98 03/03/20 11:59 97.2 96 17 123/84 (97) 99 03/03/20 09:50 Room Air 03/03/20 00:00 97.8 85 18 107/69 (82) 97 03/02/20 21:00 Room Air 03/02/20 20:00 97.8 81 18 120/73 (89) 100 I&O Intake and Output 03/02/20 03/03/20 19:00 07:00 Intake Total 400 ml 415 ml Output Total 600 ml 500 ml Balance -200 ml -85 ml Intake Oral 400 ml 360 ml IV Total 55 ml Output Urine Total 600 ml 500 ml # Bowel Movements 1 Dressing: saturated Cardiovascular: RSR Respiratory: decreased breath sounds Abdomen: soft, non-tender, present bowel sounds, other, non-distended Extremities: no edema, no tenderness, no cyanosis Laboratory Tests Test 03/03/20 06:18 White Blood Count 7.2 K/UL (4.8-10.8) Red Blood Count 5.29 M/UL (4.70-6.10) Hemoglobin 14.1 G/DL (14.2-18.0) L Hematocrit 46.1 % (42.0-52.0) Mean Corpuscular Volume 87 FL (80-99) Mean Corpuscular Hemoglobin 26.6 PG (27.0-31.0) L Mean Corpuscular Hemoglobin Concent 30.5 G/DL (32.0-36.0) L Red Cell Distribution Width 14.6 % (11.6-14.8) Platelet Count 276 K/UL (150-450) Mean Platelet Volume 7.2 FL (6.5-10.1) Neutrophils (%) (Auto) 39.1 % (45.0-75.0) L Lymphocytes (%) (Auto) 48.8 % (20.0-45.0) H Monocytes (%) (Auto) 8.3 % (1.0-10.0) Eosinophils (%) (Auto) 1.6 % (0.0-3.0) Basophils (%) (Auto) 2.3 % (0.0-2.0) H Sodium Level 138 MMOL/L (136-145) Potassium Level 3.8 MMOL/L (3.5-5.1) Chloride Level 101 MMOL/L (98-107) Carbon Dioxide Level 32 MMOL/L (21-32) Anion Gap 5 mmol/L (5-15) Blood Urea Nitrogen 11 mg/dL (7-18) Creatinine 0.9 MG/DL (0.55-1.30) Estimat Glomerular Filtration Rate > 60 mL/min (>60) Glucose Level 76 MG/DL (74-106) Calcium Level 9.3 MG/DL (8.5-10.1) Plan Problems: (1) Paraplegia (2) Sepsis (3) UTI (urinary tract infection) (4) Abnormal urogenital findings Assessment & Plan: suprapubic cath frequent uti extensive history recommend cath change will discuss with urology given complexity of history thank you crews changed (5) Sacral decubitus ulcer, stage IV Assessment & Plan: 23-year-old male presents to [facility] and is admitted for further care and management identified to have decubitus ulcer on admission. States had with a stage IV sacral decubitus ulcer that does show some signs of resolving and likely present for some time now. SACRUM-UNSTAGEABLE PRESSURE INJURY MEASURES [id number]. SCANT SANGUINEOUS DRAINAGE. ISABEL-WOUND WITH NOTED OLD SCARRING. The patient's sacrum and buttock area is near flat and identified to have a divot in the sacral region with scar tissue identified. It is an abnormal wound which can be potentially consistent with potential debridement prior and closure and considerations for either bone debridement. Wound bed in total approximately 8 cm x 8 cm with scar tissue and healing open area as above. No active drainage. No signs of active acute infection. Patient also identifi ed on admission to have a right ischial decubitus ulcer with palpable bone as well. LEFT BUTTOCK-STAGE II PRESSURE ULCER MEASURES 0.9X0.7X0.2CM SCANT SERO- SANGUINEOUS DRANAGE. ISABEL-WOUND WITH NOTED OLD SCARRING. There is overlying tis lionel granulation tissue identified and scar tissue showing signs of resolution and likely prior was larger and has received care since. No acute infection no drainage both wounds are clean without signs of active infection. No foul odor. Treatment plan Wash sacral and right ischial wounds daily with normal saline. Apply Thera honey impregnated gauze followed by foam dressing. Skin protectant Turn patient every 2 hours Offload heels with pillow Air mattress Nutritional optimization We will follow with recommendations thank you for let me participate in patient's care Rock Reese Mar 03, 2020 16:44
--- NOTE | 2020-03-03 18:10 | NUR ---
nurse notes Dr Schmidt notified the [facility] is ok to give IV atb , Dr Schmidt ordered ok to discharge to SNF continue MERREM for more days aleah chatman
[2020-03-03] MEDS ORDERED: MEROPENEM1 GM IV (18:23)
[2020-03-03] MEDS ORDERED: LIORESAL20 MG ORAL (18:28)
--- NOTE | 2020-03-03 18:45 | NUR ---
nurse notes called and spoke to Shari PUENTE receiving nurse stated she will call the senior sales administrator before they will admit this patient awaiting for they call aleah chatman
--- NOTE | 2020-03-03 19:43 | NUR ---
NURSE HAND-OFF: Important Events on Shift:[stable for discharge] Patient Status: [improving] Diet: [regular diet] Pending Orders: [none] Pending Results/Labs:[none] Pending MD notification:[none] Latest Vital Signs: Temperature 97.9 , Pulse 91 , B/P 113 /66 , Respiratory Rate 17 , O2 SAT 98 , Room Air, O2 Flow Rate . Vital Sign Comment: [stable] Latest Lyons Fall Score: 55 Fall Risk: High Risk Safety Measures: Call light Within Reach, Bed Alarm Zone 1, Side Rails Side Rails x2, Bed position Low and Locked. Fall Precautions: Yellow Socks Door Sign Patient Fall Education Report given to [mao RN].
--- NOTE | 2020-03-03 19:44 | NUR ---
NURSE NOTES: Received patient in no apparent distress. A&OX4. IV site patent and intact. Suprapubic cath noted, draining well by gravity, tejinder urine noted. Patient waiting for discharge to [facility]. Bed in lowest position. Call light within reach. Will continue to monitor.
[2020-03-03 20:00] VITALS: BP 120/96
--- NOTE | 2020-03-03 20:00 | NUR ---
NURSE NOTES: Received phone call from Gracia(revenue cycle administrator) from [facility]. They will accept patient.
--- NOTE | 2020-03-03 21:15 | NUR ---
NURSE NOTES: Marcelino belonging given back to patient, counted in front of him with security. $20 x 50 and $100 x 10. Primary nurse informed.
--- NOTE | 2020-03-03 21:20 | NUR ---
NURSE NOTES: Report given to Shari at [facility]. Patient going to room 114B.
[2020-03-03 22:55] VITALS: BP 134/77
--- NOTE | 2020-03-03 23:00 | NUR ---
NURSE NOTES: Patient discharged to [facility] with stable condition. VS stable. Removed ID band. Patient discharge with IV line for continue IV antibiotic medication and Suprapubic catheter. Dressing changed on sacral and buttocks area, picture taken. All belongings(including $2000 jones) were sent with patient. Discharge instruction was given, signed, patient fully understood. Picked up by ambulance staff.
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
== END 2020-03-03 23:00 | DRG 689 ==
LOC: EDUNIT# 22:04 → EDBD 22:04 → EMR 22:20 → 4E 23:11 → EDBEDREQ 23:36
PROC: 0T2BX0Z Change Drainage Device in Bladder, External Approach (ICD-10-PCS; principal; 2020-03-01)
DX: N39.0 Urinary tract infection, site not specified (principal); L89.154 Pressure ulcer of sacral region, stage 4; G82.20 Paraplegia, unspecified; Z16.12 Extended spectrum beta lactamase (ESBL) resistance; Z16.21 Resistance to vancomycin; T83.010A Breakdown (mechanical) of cystostomy catheter, initial encounter; Z88.1 Allergy status to other antibiotic agents; B95.62 Methicillin resistant Staphylococcus aureus infection as the cause of diseases classified elsewhere; B95.2 Enterococcus as the cause of diseases classified elsewhere; L89.322 Pressure ulcer of left buttock, stage 2; W34.00XS Accidental discharge from unspecified firearms or gun, sequela; Y84.6 Urinary catheterization as the cause of abnormal reaction of the patient, or of later complication, without mention of misadventure at the time of the procedure
CPT/HCPCS: 36415; 76870; 80048; 80053; 81003; 83605; 85007; 85025; 87040; 87086; 87181; 96365; 96375; 99285; J7030